=== PATIENT | male | born 1965 | race Caucasian/White ===

== ENCOUNTER 2023-04-28 23:35 | Emergency (ER) | payer OTHER, SELFPAY ==
[2023-04-28 23:39] VITALS: BP 194/122; PULSE 62; RESP 16; TEMP 36.6; O2SAT 98; BMI 39.0
--- NOTE | 2023-04-28 23:58 | CT_ITS ---
The [address] [address] Patient Name: URMILA HEATON MRN: [id number] date: 1965 Sex: M Assigned Patient Location: ED.MAIN Current Patient Location: ED.MAIN Accession/Order Number: [id number] Exam Date: 04/28/2023 00:00 Report Date: 04/29/2023 01:36 At the request of: ITA SOTO Procedure: CT abdomen pelvis wo con EXAM: CT abdomen pelvis wo con HISTORY: Right renal colic. COMPARISON: None. TECHNIQUE: CT abdomen and pelvis without contrast. FINDINGS: Lung bases are clear. There is an adrenal nodule on the right measuring 22 x 16 mm with a central Hounsfield density below 5. No retroperitoneal lymphadenopathy. Mild hydronephrosis is present on the right side. There is a stone just below the UPJ measuring 4 x 5 x 4 mm. Multiple hepatic cysts are noted. Aortic atherosclerosis without aneurysm. No bowel obstruction or inflammation. No pneumatosis or pneumoperitoneum. Appendix is not identified. No pelvic adenopathy or ascites. The bladder is normal. Prostate is not enlarged. CT/CT abdomen pelvis wo con IMPRESSION: 1. Mild hydronephrosis on the right due to a stone just below the UPJ. 2. Small right adrenal adenoma. Electronically authenticated by: PATRICIA NEW Date: 04/29/2023 01:36
--- NOTE | 2023-04-29 | ED_ITS ---
HPI - Male Genitourinary General Chief complaint: Urogenital-Male Stated complaint: FLANK PAIN / KIDNEY STONES Time Seen by Provider: 04/28/23 23:55 History of Present Illness HPI Narrative: right CVA pain. States had MRI last week of his lower lumbar spine and they identified a 5mm stone that was not bothering him. Now presents with recurrent right flank pain on and off since yesterday. Increased pain tonight associated with recurrent vomiting. Now that he is here, the pain is easing up again. No fever. Pain does not radiates into the groin or RLQ Related Data Home Medications Medication Instructions Recorded Confirmed atorvastatin 40 mg tablet 40 mg PO DAILY 04/28/23 04/28/23 fexofenadine 60 mg tablet (Gale 60 mg PO DAILY 04/28/23 04/28/23 Allergy) losartan 100 mg tablet 100 mg PO DAILY 04/28/23 04/28/23 meloxicam 15 mg tablet 15 mg PO DAILY 04/28/23 04/28/23 semaglutide 1 mg/dose (4 mg/3 mL) 1 mg subcut .COMPLEX 04/28/23 04/28/23 subcutaneous pen injector (Ozempic) sildenafil 50 mg tablet 50 mg PO DAILY 04/28/23 04/28/23 Allergies Allergy/AdvReac Type Severity Reaction Status Date / Time No Known Drug Allergies Allergy Verified 04/28/23 23:43 Review of Systems ROS Status of ROS 10 or more systems reviewed and unremarkable except as noted in history and below PFSH PFS Social History Smoking status: Never smoker Exam Constitutional Vital Signs, click to edit/add: Last Vital Signs Temp 97.9 F 04/28/23 23:39 Pulse 62 04/28/23 23:39 Resp 16 04/28/23 23:39 BP 115/81 H 04/29/23 00:43 Pulse Ox 94 L 04/29/23 03:56 O2 Del Method Room Air 04/29/23 03:56 O2 Flow Rate 3 04/29/23 03:09 Common normals: no apparent distress, average body habitus, oriented x3, no limitations and healthy appearing Eye Common normals: EOMs intact bilaterally and conjunctivae normal Respiratory Common normals: normal respiratory effort, no retractions and no use of a ccessory muscles Cardio Common normals: regular rate, regular rhythm, S1 normal heart sound and S2 normal heart sound GI Other: mild R flank tenderness Extremity Common normals: normal to inspection and full ROM Neuro Common normals: oriented x3, CN's II-XII intact bilaterally, moves all extremities, no focal motor deficits and no sensory deficits noted Psych Appearance: grossly normal Course Vital Signs Vital signs: Vital Signs Temperature 97.9 F 04/28/23 23:39 Pulse Rate 62 04/28/23 23:39 Respiratory Rate 16 04/28/23 23:39 Blood Pressure 194/122 H 04/28/23 23:39 Pulse Oximetry 98 04/28/23 23:39 Temperature 97.9 F 04/28/23 23:39 Pulse Rate 62 04/28/23 23:39 Respiratory Rate 16 04/28/23 23:39 Blood Pressure 115/81 H 04/29/23 00:43 Pulse Oximetry 94 L 04/29/23 03:56 Oxygen Delivery Method Room Air 04/29/23 03:56 Oxygen Delivery Flow Rate 3 04/29/23 03:09 MDM - Male Genitourinary MDM Narrative Medical decision making narrative: patient presents with R CVA pain. CT with kidney stone at right UPJ and mild hydronephrosis. UA without evidence of infection. Pain controlled while here in the department. Patient discharged home and advised to follow up with Urology Lab Data Labs: Lab Results 04/28/23 04/28/23 Range/Units 01:25 23:46 WBC 6.5 (4.0-11.0) 10^3/uL RBC 4.78 (4.70-6.10) 10^6/uL Hgb 14.6 (14.0-18.0) g/dL Hct 42.3 (42.0-54.0) % MCV 88.5 (80.0-94.0) fL MCH 30.5 (25.9-34.0) pg MCHC 34.5 (29.9-35.2) g/dL RDW 13.6 (11.0-15.0) % Plt Count 288 (150-450) 10^3/uL MPV 9.8 (9.5-13.5) fL Neut % (Auto) 48.7 (43.0-75.0) % Lymph % (Auto) 33.7 (20.5-60.0) % [place] % (Auto) 9.8 (1.7-12.0) % Eos % (Auto) 6.4 (0.9-7.0) % Baso % (Auto) 1.1 (0.2-2.0) % Neut # (Auto) 3.2 (1.4-6.5) 10^3/uL Lymph # (Auto) 2.2 (1.2-3.8) 10^3/uL [place] # (Auto) 0.6 (0.3-0.8) 10^3/uL Eos # (Auto) 0.4 (0.0-0.7) 10^3/uL Baso # (Auto) 0.1 (0.0-0.1) 10^3/uL Abs Immat Gran (auto) 0.02 (0.00-0.03) 10^3/uL Imm/Tot Granulo (auto) 0.3 (0.0-0.5) % Sodium 141 (136-145) mmol/L Potassium 3.4 L (3.5-5.1) mmol/L Chloride 106 (98-107) mmol/L Carbon Dioxide 25.9 (21.0-32.0) mmol/L Anion Gap 12.5 BUN 14.0 (7.0-18.0) mg/dL Creatinine 1.21 (0.70-1.30) mg/dL Est GFR ( Amer) >60 (>=60) Est GFR (Non-Af Amer) >60 (>=60) BUN/Creatinine Ratio 11.6 Glucose 158 H (74-106) mg/dL Lactate 1.4 (0.4-2.0) mmol/L Calcium 8.6 (8.5-10.1) mg/dL Total Bilirubin 0.5 (0.2-1.0) mg/dL AST 31 (15-37) U/L ALT 28 (16-63) U/L Alkaline Phosphatase 80 (46-116) U/L Total Protein 7.5 (6.4-8.2) g/dL Albumin 3.8 (3.4-5.0) g/dL Globulin 3.7 g/dL Albumin/Globulin Ratio 1.0 Urine Color Yellow (YELLOW) Urine Clarity Clear (CLEAR) Urine pH 5.5 (5.0-9.0) Ur Specific [place] >=1.030 A (1.005-1.025) Urine Protein 30 A (NEG/TRACE) mg/dL Urine Glucose (UA) Negative (NEGATIVE) mg/dL Urine Ketones Trace A (NEGATIVE) mg/dL Urine Occult Blood Large A (NEGATIVE) Urine Nitrite Negative (NEGATIVE) Urine Bilirubin Negative (NEGATIVE) Urine Urobilinogen 1.0 (0.2-1.0) EU/dL Ur Leukocyte Esterase Negative (NEGATIVE) Urine RBC 20-50 A (0-2) #/HPF Urine WBC 0-2 A (NONE SEEN) #/HPF Ur Squamous Epith Cells None seen (NONE/RARE) #/LPF Urine Crystals None seen (None Seen) #/HPF Urine Bacteria Trace A (NONE SEEN) #/HPF Urine Casts None seen (NONE SEEN) #/LPF Urine Mucus Small A (NONE SEEN) Ur Culture Indicated? No Discharge Plan Discharge Chief Complaint: Urogenital-Male Clinical Impression: Kidney stone on right side Prescriptions / Home Meds: No Action atorvastatin 40 mg tablet 40 mg PO DAILY sildenafil 50 mg tablet 50 mg PO DAILY fexofenadine [Gale Allergy] 60 mg tablet 60 mg PO DAILY losartan 100 mg tablet 100 mg PO DAILY meloxicam 15 mg tablet 15 mg PO DAILY Ozempic 1 mg/dose (4 mg/3 mL) pen injector 1 mg SUBCUT .COMPLEX Rx Instructions: 1 mg subcutaneously one time per week; Instructions: Kidney Stones (ED) Additional Instructions: follow up with Urology Stand Alone Forms: Portal Instructions Referrals: CAROLYN JERONIMO [Primary Care Provider] - 1 week
[2023-04-29] MEDS: 0.9 % SODIUM CHLORIDE 1,000 ML 999 ML IV (00:14)
[2023-04-29] MEDS: KETOROLAC TROMETHAMINE 30 MG/ML VIAL IM (00:14)
[2023-04-29] MEDS: ORPHENADRINE 60 MG/ 2 ML VIAL IV (00:15)
[2023-04-29 00:22] LABS: Basophils Absolute Auto 0.1 10^3/uL (0.0-0.1); Basophils Percent Auto 1.1 % (0.2-2.0); Eosinophils Absolute Auto 0.4 10^3/uL (0.0-0.7); Eosinophils Percent Auto 6.4 % (0.9-7.0); Hematocrit 42.3 % (42.0-54.0); Hemoglobin 14.6 g/dL (14.0-18.0); Immature Granulocytes Abs Auto 0.02 10^3/uL (0.00-0.03); Immature Granulocytes Pct Auto 0.3 % (0.0-0.5); Lymphocytes Absolute Auto 2.2 10^3/uL (1.2-3.8); Lymphocytes Percent Auto 33.7 % (20.5-60.0); Mean Corpuscular HGB Conc 34.5 g/dL (29.9-35.2); Mean Corpuscular Hemoglobin 30.5 pg (25.9-34.0); Mean Corpuscular Volume 88.5 fL (80.0-94.0); Mean Platelet Volume 9.8 fL (9.5-13.5); Monocytes Absolute Auto 0.6 10^3/uL (0.3-0.8); Monocytes Percent Auto 9.8 % (1.7-12.0); Neutrophils Absolute Auto 3.2 10^3/uL (1.4-6.5); Neutrophils Percent Auto 48.7 % (43.0-75.0); Platelet Count 288 10^3/uL (150-450); Red Blood Count 4.78 10^6/uL (4.70-6.10); Red Cell Distribution Width 13.6 % (11.0-15.0); White Blood Count 6.5 10^3/uL (4.0-11.0)
[2023-04-29 00:41] LABS: Lactate/Lactic Acid 1.4 mmol/L (0.4-2.0)
[2023-04-29 00:43] VITALS: BP 115/81
[2023-04-29 00:48] LABS: Alanine Aminotransferase 28 U/L (16-63); Albumin Level 3.8 g/dL (3.4-5.0); Alkaline Phosphatase 80 U/L (46-116); Anion Gap 12.5; Aspartate Amino Transferase 31 U/L (15-37); BUN Creatinine Ratio 11.6; Bilirubin Total 0.5 mg/dL (0.2-1.0); Calcium 8.6 mg/dL (8.5-10.1); Carbon Dioxide 25.9 mmol/L (21.0-32.0); Chloride 106 mmol/L (98-107); Estimated GFR (African America >60 (>=60); Estimated GFR (Non-African Ame >60 (>=60); Globulin 3.7 g/dL; Glucose 158 mg/dL (74-106); Potassium 3.4 mmol/L (3.5-5.1); Sodium 141 mmol/L (136-145); Total Protein 7.5 g/dL (6.4-8.2)
[2023-04-29 01:33] LABS: Bilirubin Urine NEGATIVE (NEGATIVE); Blood Urine LARGE (NEGATIVE); Clarity Urine CLEAR (CLEAR); Color Urine YELLOW (YELLOW); Glucose Urine UA NEGATIVE (NEGATIVE); Ketones Urine TRACE mg/dL (NEGATIVE); Leukocyte Esterase Urine NEGATIVE (NEGATIVE); Nitrite Urine NEGATIVE (NEGATIVE); Protein Urine 30 mg/dL (NEG/TRACE); Specific Gravity Urine >=1.030 (1.005-1.025); pH Urine 5.5 (5.0-9.0)
[2023-04-29 01:36] LABS: Urine Microscopic Indicated YES
[2023-04-29 01:44] LABS: Bacteria Urine TRACE #/HPF (NONE SEEN); Crystals Seen? None Seen #/HPF (None Seen); Mucus Urine SMALL (NONE SEEN); RBC Urine 20-50 #/HPF (0-2); Squamous Epithelial Cell Urine NONE SEEN #/LPF (NONE/RARE); WBC Urine 0-2 #/HPF (NONE SEEN)
[2023-04-29 01:45] LABS: Cast Seen? NONE SEEN #/LPF (NONE SEEN); Urine Culture Indicated NO
[2023-04-29] MEDS: MORPHINE SULFATE 4 MG/ML VIAL IV (02:02)
[2023-04-29] MEDS: 0.9 % SODIUM CHLORIDE 1,000 ML 1000 ML IV (02:18)
[2023-04-29] MEDS: ONDANSETRON PF 4 MG/2 ML VIAL IV (02:47)
[2023-04-29] MEDS: HYDROMORPHONE HCL 0.5 MG/0.5 ML SYRINGE IV (02:47)
[2023-04-29 03:08] VITALS: O2SAT 87
[2023-04-29 03:09] VITALS: O2SAT 94
[2023-04-29 03:56] VITALS: O2SAT 94
[2023-04-29] MEDS: KETOROLAC TROMETHAMINE 30 MG/ML VIAL IVP (03:56)
[2023-04-29] MEDS: HYDROCODONE/ACETAMINOPHEN 5-325 MG TABLET 4 TAB PO (04:48)
[2023-04-29 04:56] VITALS: PULSE 81; RESP 14; O2SAT 96
== END 2023-04-29 04:57 | disposition home or self-care (01) ==
PROVIDERS: Emergency Provider Internal Medicine; PCP Family Medicine
DX: N13.2 Hydronephrosis with renal and ureteral calculous obstruction (principal); Z79.899 Other long term (current) drug therapy
CPT/HCPCS: 36415; 74176; 80053; 81003; 81015; 83605; 85025; 96361; 96372; 96374; 96375; 99284; J1170

== ENCOUNTER 2023-07-19 21:09 | Emergency (ER) | payer BC, SELFPAY ==
[2023-07-19] VITALS (20 sets, daily range): BP systolic 132–176; BP diastolic 82–120; PULSE 79; RESP 18; TEMP 36.6; O2SAT 90–100; BMI 38.9
--- NOTE | 2023-07-19 21:26 | ED.MALEGU1 ---
HPI - Male Genitourinary General Chief complaint: Abdominal Pain Stated complaint: POSS KIDNEY STONE Time Seen by Provider: 07/19/23 21:16 History of Present Illness HPI Narrative: 57-year-old male presents to the emergency department for right flank pain and frequency of urination. He was diagnosed with a kidney stone in April of this year and has not seen a urologist. No fever or gross hematuria or any sort of injury. The symptoms developed skin about a week ago and it's been intermittent. No vomiting. The pain is mild to moderate. Related Data Home Medications Medication Instructions Recorded Confirmed atorvastatin 40 mg tablet 40 mg PO DAILY 04/28/23 04/28/23 fexofenadine 60 mg tablet (Gale 60 mg PO DAILY 04/28/23 04/28/23 Allergy) losartan 100 mg tablet 100 mg PO DAILY 04/28/23 04/28/23 meloxicam 15 mg tablet 15 mg PO DAILY 04/28/23 04/28/23 semaglutide 1 mg/dose (4 mg/3 mL) 1 mg subcut .COMPLEX 04/28/23 04/28/23 subcutaneous pen injector (Ozempic) sildenafil 50 mg tablet 50 mg PO DAILY 04/28/23 04/28/23 Previous Rx's Medication Instructions Recorded hydrocodone 5 mg-acetaminophen 325 1 tab PO Q6H PRN pain 5 days #20 07/19/23 mg tablet tabs Allergies Allergy/AdvReac Type Severity Reaction Status Date / Time No Known Drug Allergies Allergy Verified 07/19/23 21:25 Review of Systems ROS Narrative A ten point review of systems is negative except as noted above. PFSH PFSH Social History Smoking status: Never smoker Exam Narrative Exam Narrative: Nurses note and vital signs reviewed and patient is not hypoxic. General: The patient appears well and in no apparent distress. Patient is resting comfortably on cart. Skin: Warm, dry, no pallor noted. There is no rash noted. Head: Normocephalic, atraumatic Eye: Normal conjunctiva, no drainage Ears, Nose, Mouth, and Throat: oral mucosa is moist. Nares patent. Cardiovascular: Regular Rate and Rhythm Respiratory: Patient is in no distress, no accessory muscle use, lungs are clear to auscultation, no wheezing, rales or rhonchi Back: non-tender, no CVA tenderness bilaterally to percussion. no bruise or rash GI: soft and nontender Musculoskeletal: The patient has no evidence of calf tenderness, no pitting edema, symmetrical pulses noted bilaterally Neurological: A&O, normal speech Psychiatric: Cooperative Constitutional Vital Signs, click to edit/add: Last Vital Signs Temp 98 F 07/19/23 21:18 Pulse 79 07/19/23 21:18 Resp 18 07/19/23 21:18 BP 132/83 07/19/23 21:34 Pulse Ox 100 07/19/23 21:34 O2 Del Method Room Air 07/19/23 21:18 Course Vital Signs Vital signs: Vital Signs Temperature 98 F 07/19/23 21:18 Pulse Rate 79 07/19/23 21:18 Respiratory Rate 18 07/19/23 21:18 Pulse Oximetry 98 07/19/23 21:18 Oxygen Delivery Method Room Air 07/19/23 21:18 Temperature 98 F 07/19/23 21:18 Pulse Rate 79 07/19/23 21:18 Respiratory Rate 18 07/19/23 21:18 Blood Pressure 132/83 07/19/23 21:34 Pulse Oximetry 100 07/19/23 21:34 Oxygen Delivery Method Room Air 07/19/23 21:18 MDM - Male Genitourinary MDM Narrative Medical decision making narrative: CT per radiologist shows stone in the bladder. The patient appears to have passed the stone that he was originally diagnosed with over the summer. He is given a urine strainer and specimen cup and will follow-up with his urologist. He is provided a prescription for [place]. Treatment diagnosis and follow-up were discussed with the patient. Differential Diagnosis Differential diagnosis: Likely urinary tract infection and other (kidney stone, hydronephrosis) Medical Records Attestation: I reviewed the patient's medical records. Lab Data Attestation: I reviewed the patient's lab results. Labs: Lab Results 07/19/23 Range/Units 21:30 WBC 9.7 (4.0-11.0) 10^3/uL RBC 4.48 L (4.70-6.10) 10^6/uL Hgb 13.9 L (14.0-18.0) g/dL Hct 41.8 L (42.0-54.0) % MCV 93.3 (80.0-94.0) fL MCH 31.0 (25.9-34.0) pg MCHC 33.3 (29.9-35.2) g/dL RDW 13.9 (11.0-15.0) % Plt Count 251 (150-450) 10^3/uL MPV 9.5 (9.5-13.5) fL Neut % (Auto) 60.9 (43.0-75.0) % Lymph % (Auto) 24.3 (20.5-60.0) % [place] % (Auto) 8.2 (1.7-12.0) % Eos % (Auto) 5.3 (0.9-7.0) % Baso % (Auto) 1.0 (0.2-2.0) % Neut # (Auto) 5.9 (1.4-6.5) 10^3/uL Lymph # (Auto) 2.4 (1.2-3.8) 10^3/uL [place] # (Auto) 0.8 (0.3-0.8) 10^3/uL Eos # (Auto) 0.5 (0.0-0.7) 10^3/uL Baso # (Auto) 0.1 (0.0-0.1) 10^3/uL Abs Immat Gran (auto) 0.03 (0.00-0.03) 10^3/uL Imm/Tot Granulo (auto) 0.3 (0.0-0.5) % Sodium 137 (136-145) mmol/L Potassium 3.7 (3.5-5.1) mmol/L Chloride 104 (98-107) mmol/L Carbon Dioxide 26.4 (21.0-32.0) mmol/L Anion Gap 10.3 BUN 16.0 (7.0-18.0) mg/dL Creatinine 1.09 (0.70-1.30) mg/dL Est GFR ( Amer) >60 (>=60) Est GFR (Non-Af Amer) >60 (>=60) BUN/Creatinine Ratio 14.7 Glucose 95 (74-106) mg/dL Calcium 8.7 (8.5-10.1) mg/dL Urine Color Yellow (YELLOW) Urine Clarity Clear (CLEAR) Urine pH 6.0 (5.0-9.0) Ur Specific [place] 1.025 (1.005-1.025) Urine Protein Negative (NEG/TRACE) mg/dL Urine Glucose (UA) Negative (NEGATIVE) mg/dL Urine Ketones Negative (NEGATIVE) mg/dL Urine Occult Blood Large A (NEGATIVE) Urine Nitrite Negative (NEGATIVE) Urine Bilirubin Negative (NEGATIVE) Urine Urobilinogen 0.2 (0.2-1.0) EU/dL Ur Leukocyte Esterase Negative (NEGATIVE) Urine RBC 10-20 A (0-2) #/HPF Urine WBC 0-2 A (NONE SEEN) #/HPF Ur Squamous Epith Cells Rare (NONE/RARE) #/LPF Urine Crystals None seen (None Seen) #/HPF Urine Bacteria Trace A (NONE SEEN) #/HPF Urine Casts None seen (NONE SEEN) #/LPF Urine Mucus None seen (NONE SEEN) Ur Culture Indicated? No Imaging Data CT scan - abdomen: Radiologist's impression: Procedure: CT abdomen pelvis wo con EXAM: CT SCAN OF THE ABDOMEN AND PELVIS WITHOUT IV CONTRAST DATE OF EXAM: 07/19/2023 9:40 PM EDT HISTORY: right flank pain, rule out stone in a 57-year-old male prior history of a renal stone with pain that radiates into his bladder COMPARISON: 04/29/2023 TECHNIQUE: CT examination of the abdomen and pelvis with sagittal and coronal reformations was performed without intravenous contrast. CT dose lowering techniques were used, to include: automated exposure control, adjustment for patient size, and/or use of iterative reconstruction. CONTRAST: None. FINDINGS: Note: This exam is limited because some types of pathology may not be adequately demonstrated due to lack of contrast enhancement. Director [facility]/Lines & Tubes: Nonobstructive bowel gas pattern. Lower Chest: Interstitial opacity in the medial right lung base Free Air: None. Liver: The liver is enlarged with fluid attenuating regions demonstrated. Largest is measuring 28 x 28 mm within the medial left lobe of the liver on axial image 24 of series 3. Further evaluation limited due to lack of IV contrast. Gallbladder: Decompressed Common Bile Duct: Normal Pancreas: Normal Spleen: Normal Adrenal Glands: Right: Fluid attenuating and fat attenuating nodule measures 21.5 mm Left: Normal Kidneys: Right Kidney: Moderate hydronephrosis with hydroureter secondary to a 4 mm stone in the base of the bladder Left Kidney: Normal. Left Ureter: Normal. GI Tract: Distal Esophagus: Normal. Stomach: Decompressed Small Bowel: Normal Appendix: No secondary signs for acute appendicitis Large Bowel: Scattered diverticula Mesentery/Peritoneum: Normal Vasculature: Normal Lymph Nodes: Normal Abdominal Wall: Normal Bladder: Decompressed Reproductive: Normal prostate Musculoskeletal: Normal Free Fluid: None. IMPRESSION: 1. Moderate hydronephrosis with hydroureter secondary to a 4 mm stone in the base of the bladder 2. Hepatomegaly with stable fluid attenuating regions demonstrated. Largest is measuring 28 x 28 mm within the medial left lobe of the liver on axial image 24 of series 3. Further evaluation limited due to lack of IV contrast. Please correlate with patient's LFTs. If clinically indicated MRI using multiphasic liver protocol would help better delineate. 3. Stable Right adrenal gland adenoma. 4. Decompressed gallbladder. Please correlate with patient's nothing by mouth status. 5. Otherwise unremarkable noncontrast CT of the abdomen and pelvis for acute pathology. Electronically authenticated by: PIERO JAMA Date: 07/19/2023 23:14 Discharge Plan Discharge Chief Complaint: Abdominal Pain Clinical Impression: Hydronephrosis, Calculus of kidney Patient Disposition: Home, Self-Care Time of Disposition Decision: 23:30 Condition: Good Mode of Transportation: Private Vehicle Prescriptions / Home Meds: New hydrocodone-acetaminophen 5-325 mg tablet 1 tab PO Q6H PRN (Reason: pain) 5 Days Qty: 20 0RF No Action atorvastatin 40 mg tablet 40 mg PO DAILY sildenafil 50 mg tablet 50 mg PO DAILY fexofenadine [Gale Allergy] 60 mg tablet 60 mg PO DAILY losartan 100 mg tablet 100 mg PO DAILY meloxicam 15 mg tablet 15 mg PO DAILY Ozempic 1 mg/dose (4 mg/3 mL) pen injector 1 mg SUBCUT .COMPLEX Rx Instructions: 1 mg subcutaneously one time per week; Stand Alone Forms: Portal Instructions Referrals: CAROLYN JERONIMO [Primary Care Provider] - 1 week
[2023-07-19 21:51] LABS: Basophils Absolute Auto 0.1 10^3/uL (0.0-0.1); Bilirubin Urine NEGATIVE (NEGATIVE); Blood Urine LARGE (NEGATIVE); Clarity Urine CLEAR (CLEAR); Color Urine YELLOW (YELLOW); Eosinophils Absolute Auto 0.5 10^3/uL (0.0-0.7); Eosinophils Percent Auto 5.3 % (0.9-7.0); Glucose Urine UA NEGATIVE (NEGATIVE); Hematocrit 41.8 % (42.0-54.0); Hemoglobin 13.9 g/dL (14.0-18.0); Immature Granulocytes Abs Auto 0.03 10^3/uL (0.00-0.03); Immature Granulocytes Pct Auto 0.3 % (0.0-0.5); Ketones Urine NEGATIVE (NEGATIVE); Leukocyte Esterase Urine NEGATIVE (NEGATIVE); Lymphocytes Absolute Auto 2.4 10^3/uL (1.2-3.8); Lymphocytes Percent Auto 24.3 % (20.5-60.0); Mean Corpuscular HGB Conc 33.3 g/dL (29.9-35.2); Mean Corpuscular Volume 93.3 fL (80.0-94.0); Mean Platelet Volume 9.5 fL (9.5-13.5); Monocytes Absolute Auto 0.8 10^3/uL (0.3-0.8); Monocytes Percent Auto 8.2 % (1.7-12.0); Neutrophils Absolute Auto 5.9 10^3/uL (1.4-6.5); Neutrophils Percent Auto 60.9 % (43.0-75.0); Nitrite Urine NEGATIVE (NEGATIVE); Platelet Count 251 10^3/uL (150-450); Protein Urine NEGATIVE (NEG/TRACE); Red Blood Count 4.48 10^6/uL (4.70-6.10); Red Cell Distribution Width 13.9 % (11.0-15.0); Specific Gravity Urine 1.025 (1.005-1.025); Urobilinogen Urine 0.2 EU/dL (0.2-1.0); White Blood Count 9.7 10^3/uL (4.0-11.0)
[2023-07-19 22:03] LABS: Anion Gap 10.3; BUN Creatinine Ratio 14.7; Calcium 8.7 mg/dL (8.5-10.1); Carbon Dioxide 26.4 mmol/L (21.0-32.0); Chloride 104 mmol/L (98-107); Estimated GFR (African America >60 (>=60); Estimated GFR (Non-African Ame >60 (>=60); Glucose 95 mg/dL (74-106); Potassium 3.7 mmol/L (3.5-5.1); Sodium 137 mmol/L (136-145)
[2023-07-19 22:06] LABS: Bacteria Urine TRACE #/HPF (NONE SEEN); Cast Seen? NONE SEEN #/LPF (NONE SEEN); Crystals Seen? None Seen #/HPF (None Seen); Mucus Urine NONE SEEN (NONE SEEN); Squamous Epithelial Cell Urine RARE #/LPF (NONE/RARE); WBC Urine 0-2 #/HPF (NONE SEEN)
[2023-07-19 22:07] LABS: Urine Culture Indicated NO
== END 2023-07-19 23:46 | disposition home or self-care (01) ==
PROVIDERS: Emergency Provider Emergency Medicine; PCP Family Medicine
DX: N13.2 Hydronephrosis with renal and ureteral calculous obstruction (principal); Z87.442 Personal history of urinary calculi; Z79.899 Other long term (current) drug therapy
CPT/HCPCS: 36415; 74176; 80048; 81001; 85025; 99284

== ENCOUNTER 2023-08-21 10:37 | Outpatient (OUT) | payer BC, SELFPAY ==
--- NOTE | 2023-08-21 10:40 | US_ITS ---
The [address] [address] Patient Name: URMILA HEATON MRN: [id number] date: 1965 Sex: M Assigned Patient Location: US Current Patient Location: US Accession/Order Number: [id number] Exam Date: 08/21/2023 10:45 Report Date: 08/21/2023 13:32 At the request of: ASIF CHOUDHARY Procedure: US renal bladder US renal bladder, 08/21/2023 10:45 AM EST INDICATION: Kidney Stone N20.0, Ureteral Stone N20.1 COMPARISON: Prior CT of the abdomen dated 07/19/2023 FINDINGS: The kidneys measure 11.1 x 5.3 x 6.7 cm on the right and 12.6 x 5.4 x 8 cm on the left side. No hydronephrosis is noted. Normal vascularity of kidneys. An echogenic lesion in the superior pole of the right kidney is noted measuring 3 x 1.9 x 3.2 mm most likely consistent with a nonobstructing nephrolithiasis. The visualized portion of the urinary bladder is unremarkable. Nonspecific ureteral jet is noted. The urinary bladder wall measures 5 mm. The post void residual measures 36.6 mL. US/US renal bladder IMPRESSION: Nonobstructive nephrolithiasis in the superior pole of the left kidney. No hydronephrosis. Electronically authenticated by: ABRAN RODRIGUEZ Date: 08/21/2023 13:32
--- NOTE | 2023-08-21 10:41 | XR_ITS ---
[address] [address] Patient Name: URMILA HEATON MRN: [id number] date: 1965 Sex: M Assigned Patient Location: US Current Patient Location: US Accession/Order Number: [id number] Exam Date: 08/21/2023 11:20 Report Date: 08/21/2023 12:24 At the request of: ASIF CHOUDHARY Procedure: XR abdomen 1V EXAM: XR abdomen 1V HISTORY: Ureteral Stone N20.1, Kidney Stone N20.0 COMPARISON: None. TECHNIQUE: AP view of the abdomen. FINDINGS: Nonobstructive bowel gas pattern is noted. There is no suspicious calcification. The osseous structures are intact. XR/XR abdomen 1V IMPRESSION: Nonobstructive bowel gas pattern. Constipation. Electronically authenticated by: DEE SHI Date: 08/21/2023 12:24
== END 2023-08-21 10:38 | disposition home or self-care (01) ==
LOC: US 10:37
PROVIDERS: PCP Family Medicine; Visit Provider Urology
DX: N20.1 Calculus of ureter (principal); N20.0 Calculus of kidney
CPT/HCPCS: 74018; 76770

== ENCOUNTER 2024-11-24 10:07 | Outpatient (OUT) | payer BC, SELFPAY ==
--- OUTSIDE RECORDS SUMMARY | 2024-11-24 10:28 | XMS_ITS | CCD ---
Author Organization [facility] Care Team Providers Care Pulmonary Specialist Name Role Phone ZEESHAN BAILEY Admitting Unavailable ZEESHAN BAILEY Attending Unavailable MARGARITA JERONIMO Primary Care Unavailable ZEESHAN BAILEY Consulting Unavailable MARGARITA JERONIMO Admitting Unavailable MARGARITA JERONIMO Attending Unavailable MARGARITA JERONIMO Consulting Unavailable WESTLEY BERGER Consulting Unavailable TRISTON, J A Admitting Unavailable TRISTON, J A Attending Unavailable MARGARITA JERONIMO Primary Care Unavailable Lani GOLDSTEIN Consulting Unavailable WESTLEY BERGER Consulting Unavailable TRISTON, J A Admitting Unavailable TRISTON, J A Attending Unavailable MARGARITA JERONIMO Referring Unavailable TRISTON, J A Consulting Unavailable TRISTON, J A Admitting Unavailable TRISTON, J A Attending Unavailable MARGARITA JERONIMO Primary Care Unavailable TRISTON, J A Consulting Unavailable KENNY FLORES Consulting Unavailable Danitza Ibarra Unavailable SHIVAM Jones Attending Provider Mary Jane Jones Admitting Unavailable Mary Jane Joens Attending Unavailable NON STAFF Primary Care Unavailable Mary Jane Jones Unavailable Maddy Maria Unavailable AMY DREW Primary Care Physician Isaura Vasquez. Attending Unavailable AMY DREW Referring Unavailable AMY DREW Referring Unavailable MARGARITA JERONIMO Primary Care Unavailable Margarita Jeronimo MD Primary Care Provider Margarita Jeronimo MD Unavailable MARGARITA JERONIMO Attending Unavailable AMY DREW Attending Unavailable MARGARITA JERONIMO Attending Unavailable LESLY ARMSTRONG Attending Unavailable LESLY ARMSTRONG Referring Unavailable Medications Current Medications Medication Drug Class(es) Dates Sig (Normalized) Sig (Original) acetaminophen 250 mg / caffeine 50 mg / magnesium salicylate 290 mg oral tablet (1 source) Central Nervous System Stimulant, Methylxanthine take 2 tablets by mouth every six hours Aspirin (3 sources) Platelet Aggregation Inhibitor, Nonsteroidal Anti-inflammatory Drug Aspirin Active atorvastatin 40 mg oral tablet (12 sources) HMG-CoA Reductase Inhibitor Start: 11-23-2024 take 1 tablet by mouth once daily atorvastatin (Lipitor) 40 MG tablet Indications: Pure hypercholesterolemia (CMS/HCC) Take 1 tablet (40 mg) by mouth Daily 100 tablet 3 11/23/2024 Active Start: 11-23-2024 take 1 tablet by kelly th once daily atorvastatin (Lipitor) 40 MG tablet Indications: Pure hypercholesterolemia (CMS/HCC) Take 1 tablet (40 mg) by mouth Daily 100 tablet 3 11/23/2024 Active Start: 10-18-2024 End: 11-23-2024 take 1 tablet by mouth once daily atorvastatin (Lipitor) 40 MG tablet Indications: Pure hypercholesterolemia (CMS/HCC) Take 1 tablet (40 mg) by mouth Daily 90 tablet 1 10/18/2024 11/23/2024 Discontinued (Reorder) Start: 04-20-2024 take 1 tablet by kelly th once daily atorvastatin (Lipitor) 40 MG tablet Indications: Pure hypercholesterolemia (CMS/HCC) TAKE 1 TABLET BY MOUTH EVERY DAY 90 tablet 1 04/20/2024 Active Start: 08-13-2023 take 1 tablet by kelly th every twenty-four hours Atorvastatin Meño cium Active azithromycin 250 mg oral tablet (2 sources) Macrolide Antimicrobial Start: 11-23-2024 End: 11-28-2024 take 2 tablets by mouth once daily, then take 1 tablet by mouth once daily azithromycin (Zithromax) 250 MG tablet Indications: Acute non-recurrent pansinusitis Take 2 tablets (500 mg) by mouth Daily for 1 day, THEN 1 tablet (250 mg) Daily for 4 days. 6 tablet 11/23/2024 11/28/2024 Active Crutch - (1 source) Start: 09-25-2022 Crutch - as directed Sep, Active Crutches Underarm Crutches (1 source) Start: 09-25-2022 Crutches Underarm Crutches 14 Dec, 2022 Active cyclobenzaprine hydrochloride 10 mg oral tablet (1 source) Muscle Relaxant Start: 03-28-2023 fexofenadine (10 sources) Histamine-1 Receptor Antagonist Start: 08-13-2023 fexofenadine 0 Refill(s), Refills(s) 0 Start Date: 08/13/23 Status: Ordered take 1 tablet by mouth in the mo rning Fexofenadine HCl (GALE ALLERGY PO) Take 1 tablet by mouth in the morning. Active Gale Active gabapentin 100 mg oral capsule (6 sources) Anti-epileptic Agent Start: 04-30-2024 End: 04-25-2025 take 1 capsule by mouth every eight hours gabapentin (Neurontin) 100 MG capsule Indications: Hx of diabetic neuropathy , Neuropathic pain, leg, bilateral Take 1 capsule (100 mg) by mouth every 8 (eight) hours 90 capsule 11 04/30/2024 04/25/2025 Active hyoscyamine sulfate 0.125 mg sublingual tablet (7 sources) Start: 02-05-2024 End: 11-08-2024 hyoscyamine (Levsin/SL) 0.125 MG SL tablet Indications: Pain due to calculus of kidney Place 1 tablet (125 mcg) under the tongue every 6 (six) hours if needed for bladder spasms (pain, renal stones) for up to 10 days 40 tablet 02/05/2024 11/08/2024 Discontinued (Other) Start: 08-20-2023 hyoscyamine 0. 125 mg oral Tab mg tab(s), Oral Start Date: 08/20/23 Status: Ordered Start: 05-01-2023 End: 11-08-2024 hyoscyamine (Levsin/SL) 0.12 5 MG SL tablet Indications: Bladder spasm Place 1 tablet (125 mcg) under the tongue every 4 (four) hours if needed for bladder spasms or cramping for up to 14 days. 84 tablet 05/01/2023 11/08/2024 Discontinued (Other) ibuprofen 200 mg oral tablet (1 source) Nonsteroidal Anti-inflammatory Drug losartan potassium 100 mg oral tablet (9 sources) Angiotensin 2 Receptor Mathew Start: 06-17-20 take 1 tablet by mouth once daily losartan (Cozaar) 100 MG tablet Indications: Essential hypertension (CMS/HCC) Take 1 tablet (100 mg) by mouth Daily 200 tablet 3 06/17/2024 Active Start: 08-13-2023 take 1 tablet by kelly th every twenty-four hours Losartan Potassi um Active LOW-DOSE ASPIRIN PO (5 sources) LOW-DOSE ASPIRIN PO Take by mouth Active meloxicam 15 mg oral tablet (10 sources) Nonsteroidal Anti-inflammatory Drug Start: 08-09-2024 take 1 tablet by mouth once daily meloxicam (Mobic) 15 MG tablet Indications: Other chronic pain Take 1 tablet (15 mg) by mouth Daily 90 tablet 3 08/09/2024 Active Start: 08-13-2023 metFORMIN (1 source) Biguanide metFORMIN HCl Ac tive methylPREDNISolone (2 sources) Corticosteroid Start: 11-23-2024 End: 11-30-2024 methylPREDNISolone (Medrol Dospak) 4 MG tablets Indications: Acute non-recurrent pansinusitis Follow schedule on package instructions 21 tablet 11/23/2024 11/30/2024 Active Ozempic (3 sources) Ozempic Active Ozempic (1 mg dose) (1 source) Start: 08-13-2023 Ozempic (1 mg dose) 0 Refill(s), Refills(s) 0 Start Date: 08/13/23 Status: Ordered predniSONE 20 mg oral tablet (1 source) Start: 03-28-2023 Semaglutide, 2 MG/DOSE, 8 MG/3ML solution pen-injector (6 sources) Start: 11-04-2024 inject 2 mg by subcutaneous injection every week Semaglutide, 2 MG/DOSE, 8 MG/3ML solution pen-injector Indications: Diabetic autonomic neuropathy associated with type 2 diabetes mellitus (CMS/HCC) Inject 2 mg under the skin 1 (one) time per week 3 mL 3 11/04/2024 Active Start: 03-23-2024 inject 2 mg by subcu taneous injection every week Semaglutide, 2 MG/DOSE, 8 MG/3ML solution pen-injector Indications: Diabetic autonomic neuropathy associated with type 2 diabetes mellitus (CMS/HCC) Inject 2 mg under the skin 1 (one) time per week 3 mL 3 03/23/2024 Active tamsulosin hydrochloride 0.4 mg oral capsule (1 source) alpha-Adrenergic Mathew Start: 08-20-2023 take 1 capsule by mouth once daily tamsulosin 0.4 mg Cap 0.4 mg = 1 cap(s), Oral, Daily, # 30 cap(s), Refills(s) 1, [facility]acy: [facility] #[id number], 185, cm, 08/20/23 10:26:00 EST, Height/Length Dosing, 136.4, kg, 08/20/23 10:26:00 EST, Weight Dosing Start Date: 08/20/23 Status: Ordered Completed/Discontinued Medications Medication Drug Class(es) Dates Sig (Normalized) Sig (Original) sildenafil 50 mg oral tablet (1 source) Phosphodiesterase 5 Inhibitor Start: 08-13-2023 sildenafil 50 mg Tab 8 EA, 0 Refill(s), take 1 tablet by mouth once daily if needed for ERECTILE DYSFUNCTION, Refills(s) 0 Start Date: 08/13/23 Status: Ordered Problems Active Problems Problem Classification Problem Date Documented Date Episodic/Chronic Abdominal pain (1 source) Unspecified abdominal pain; Translations: [Unspecified abdominal pain] Onset: 02-11-2024 Episodic Anxiety disorders (8 sources) Anxiety disorder, unspecified; Translations: [Anxiety] Onset: 04-30-2019 08-13-2023 Chronic Diabetes mellitus with complications (12 sources) Diabetic mononeuropathy; Translations: [Type 2 diabetes mellitus with diabetic mononeuropathy] Onset: 03-18-2023 03-18-2023 Chronic Diabetes mellitus without complication (10 sources) Type 2 diabetes mellitus without complications; Translations: [Type 2 diabetes mellitus] Onset: 04-30-2019 08-13-2023 Chronic Disorders of lipid metabolism (10 sources) Pure hypercholesterolemia; Translations: [Pure hypercholesterolemia, unspecified] Onset: 03-18-2023 03-18-2023 Chronic Essential hypertension (10 sources) Essential (primary) hypertension; Translations: [Essential hypertension] Onset: 04-30-2019 08-13-2023 Chronic Genitourinary symptoms and ill-defined conditions (7 sources) Nocturia; Translations: [Nocturia] Onset: 11-08-2024 11-08-2024 Episodic Mood disorders (7 sources) Major depressive disorder; Translations: [Depressive disorder] Onset: 04-27-2008 08-13-2023 Chronic Mood disorders (1 source) Major depressive disorder, single episode, unspecified; Translations: [CRUZ DEPRESS D/O SINGLE EPIS UNS] Onset: 04-30-2019 Osteoarthritis (14 sources) Primary osteoarthritis, right shoulder; Translations: [Arthritis] Onset: 04-30-2019 08-20-2023 Chronic Other aftercare (1 source) 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; Translations: [CLARITY DEVELOPER CURRENT USE OF ASPIRIN] Onset: 04-30-2019 Episodic Other aftercare (1 source) [facility] (current) use of oral hypoglycemic drugs; Translations: [CLARITY DEVELOPER USE ORAL HYPOGLYCEMIC DX] Onset: 04-30-2019 Other connective tissue disease (1 source) Incomplete rotator cuff tear or rupture of right shoulder, not specified as traumatic; Translations: [INCMPL ROT CUFF TEAR/RUPT RT SHLDR] Onset: 04-30-2019 Episodic Other connective tissue disease (1 source) Unspecified rotator cuff tear or rupture of right shoulder, not specified as traumatic; Translations: [UNS ROT CUFF TEAR/RUPT RT SHOULDER] Onset: 04-08-2019 Episodic Other diseases of kidney and ureters (1 source) Urinary tract obstruction; Translations: [Hydronephrosis with renal and ureteral calculous obstruction] Onset: 08-20-2023 Episodic Other male genital disorders (6 sources) Other male erectile dysfunction; Translations: [Impotence of organic origin] Onset: 03-24-2023 03-24-2023 Chronic Other nervous system disorders (7 sources) Chronic pain; Translations: [Other chronic pain] Onset: 03-18-2023 08-09-2024 Chronic Other non-traumatic joint disorders (6 sources) Arthropathy; Translations: [Arthropathy, unspecified] Onset: 03-18-2023 03-18-2023 Chronic Other non-traumatic joint disorders (6 sources) Derangement of right shoulder joint; Translations: [Other specific joint derangements of right shoulder, not elsewhere classified] Onset: 03-18-2023 03-18-2023 Chronic Other non-traumatic joint disorders (5 sources) Pain in right shoulder; Translations: [PAIN IN RIGHT SHOULDER] Onset: 01-17-2019 Episodic Other non-traumatic joint disorders (1 source) Pain in right knee Episodic Other non-traumatic joint disorders (1 source) Effusion, right knee Episodic Other nutritional; endocrine; and metabolic disorders (6 sources) Lipoprotein deficiency disorder; Translations: [Lipoprotein deficiency] Onset: 03-18-2023 03-18-2023 Chronic Other nutritional; endocrine; and metabolic disorders (8 sources) Obesity caused by energy imbalance; Translations: [Morbid (severe) obesity due to excess calories] Onset: 03-18-2023 03-23-2024 Chronic Other nutritional; endocrine; and metabolic disorders (7 sources) Body mass index 30+ - obesity; Translations: [Body mass index (BMI) 37.0-37.9, adult] Onset: 11-08-2024 11-08-2024 Chronic Other screening for suspected conditions (not mental disorders or infectious disease) (8 sources) Encounter for screening for malignant neoplasm of prostate; Translations: [Screening for malignant neoplasm done] Onset: 08-20-2023 Episodic Other upper respiratory disease (6 sources) Allergic rhinitis; Translations: [Other allergic rhinitis] Onset: 04-21-2008 03-18-2023 Chronic Other upper respiratory infections (2 sources) Acute pansinusitis; Translations: [Acute pansinusitis, unspecified] 11-23-2024 Episodic Residual codes; unclassified (6 sources) Obstructive sleep apnea syndrome; Translations: [Obstructive sleep apnea (adult) (pediatric)] Onset: 04-21-2008 03-18-2023 Chronic Spondylosis; intervertebral disc disorders; other back problems (6 sources) Cervical spondylosis without myelopathy; Translations: [Spondylosis without myelopathy or radiculopathy, cervical region] Onset: 04-21-2008 03-18-2023 Chronic Unclassified (1 source) Pain in right knee; Translations: [Pain in right knee] Onset: 09-25-2022 Unclassified (1 source) Obstructive hydronephrosis 08-20-2023 Unclassified (1 source) Patient encounter status 08-20-2023 Past or Other Problems Problem Classification Problem Date Documented Da te Episodic/Chronic Calculus of urinary tract (17 sources) Kidney stone; Translations: [Calculus of kidney] Onset: 08-20-2023 Episodic Intestinal infection (1 source) Viral intestinal infection, unspecified Onset: 05-09-2022 Resolved: 05-09-2022 Episodic Other connective tissue disease (4 sources) Impingement syndrome of right shoulder; Translations: [IMPINGEMENT SYNDROME RIGHT SHOULDER] Onset: 01-08-2019 Episodic Other connective tissue disease (6 sources) Other symptoms and signs involving the musculoskeletal system; Translations: [Other musculoskeletal symptoms referable to limbs] Onset: 04-25-2023 04-25-2023 Episodic Other diseases of kidney and ureters (6 sources) Hydronephrosis with renal and ureteral calculous obstruction; Translations: [Calculus of ureter] Onset: 09-23-2023 09-23-2023 Episodic Other gastrointestinal disorders (6 sources) Slow transit constipation; Translations: [Slow transit constipation] Onset: 09-23-2023 09-23-2023 Episodic Spondylosis; intervertebral disc disorders; other back problems (14 sources) Acute back pain with sciatica; Translations: [Lumbago with sciatica, right side] Onset: 03-24-2023 Episodic Unclassified (1 source) Contact with and (suspected) exposure to covid-19 Z20.822 Onset: 05-09-2022 Resolved: 05-09-2022 Results Test Name Value Interpretation Reference Range Facility ALBUMIN, RANDOM URINE W/CREA TININEon 11-09-2024 ALBUMIN, URINE 0.6 mg/dL Normal See Note: [facility] Comment on above: Order Comment: FASTI NG:UNKNOWN LTC ONLY: NURSE COLLECTED - NO SPECIMEN PROVIDED. FASTING: UNKNOWN Result Comment: Refe rence Range: Reference Range Not established Performed By: #### [id number] #### [facility] [address], [address] [place] [address] Pattern Stamper: Martin Carl MD ALBUMIN/CREATININE RATIO, RANDOM URINE 3 mg/g creat Normal <30 [facility] Comment on above: Order Comment: FASTI NG:UNKNOWN LTC ONLY: NURSE COLLECTED - NO SPECIMEN PROVIDED. FASTING: UNKNOWN Result Comment: The ADA defines abnormalities in albumin excretion as follows: Albuminuria Category Result (mg/g creatinine) Normal to Mildly increased <30 Moderately increased 30-299 Severely increased > OR = 300 The ADA recommends that at least two of three specimens collected within a 3-6 month period be abnormal before considering a patient to be within a diagnostic category. Performed By: #### 6 517 #### [facility] [address], [address] [place], [place] [id number] Pattern Stamper: Martin Carl MD Creatinine (U) [Mass/Vol] 208 mg/dL Normal 20-320 [facility] Comment on above: Order Comment: FASTI NG:UNKNOWN LTC ONLY: NURSE COLLECTED - NO SPECIMEN PROVIDED. FASTING: UNKNOWN Performed By: #### 6 517 #### [facility] [address], [address] [place] [address] Pattern Stamper: Martin Carl MD Laboratory - Hematology and Cell countson 11-08-2024 HbA1c (Bld) [Mass fraction] 5.5 % [facility] AVA.ai No Panel Informationon 11-08 Interpretation and review of laboratory results Normal [facility] CT ABDOMEN AND PELVIS WO CON Ton 02-11-2024 CT ABDOMEN AND PELVIS WO CONT CT ABDOMEN AND PELVIS WO CONT CLINICAL INFORMATION: Rt flank pain; Calculus of kidney; History of renal stone. TECHNIQUE: CT Abdomen and Pelvis without intravenous contrast. All CT scans at this facility use dose modulation, iterative reconstruction, and/or weight based dosing when appropriate to reduce radiation dose to as low as reasonably achievable. COMPARISON: No relevant prior studies available. FINDINGS: CT abdomen: No hydronephrosis or urinary calculi. No free air or free fluid. No enlarged lymph nodes. No abdominal aortic aneurysm. Multiple hepatic cysts measuring up to [address] PELVIS: No dilated bowel loops or pericolonic fat stranding. No calcifications in the bladder. No evidence for dilated appendix. No enlarged lymph nodes. No osseous destructive lesions. IMPRESSION: * Negative exam Finalized by Westley Fitzpatrick MD on 02/11/2024 1:12 PM Normal [facility] RAD - Ultrasound Reporton RAD - Ultrasound Report [id number]#1. 00TIFF Normal [facility] Formson 08-25-2023 Forms [id number] .00TIFF Normal [facility] Physician Referralon 023 Physician Referral [id number]# 1.00TIFF Normal [facility] Screenson 08-25-2023 Screens [id number]# 1.00TIFF Normal [facility] Screens [id number]# 1.00TIFF Normal [facility] RAD - MISCon 08-21-2023 [facility] [id number]#1 .00TIFF Normal [facility] Ambulatory Visit Summaryon 1 10-20-2022 Ambulatory Visit Summary URMILA HEATON :1965 Visit Date:08/20/2023 Ambulatory Visit Instructions Your Diagnosis Ureteral stone with hydronephrosis Kidney stone Screening PSA (prostate specific antigen) Tests Performed Urnls Dip Stick Auto w/o Microscopy POC 65000 US Bladder -- Results Pending -- US Renal -- Results Pending -- XR Abdomen 1 View -- Results Pending -- Please visit your patient portal for your results or contact your primary care physician. Your Care Team Attending Physician - Isaura Vasquez MD Primary Care Physician - AMY DREW CNP Referring Physician - AMY DREW CNP This Is Your Medications List tamsulosin (tamsulosin 0.4 mg Cap) Contact prescribing physician if questions or concerns atorvastatin (atorvastatin 40 mg Tab) fexofenadine hyoscyamine (hyoscyamine 0.125 mg oral Tab) losartan (losartan 100 mg Tab) meloxicam (meloxicam 15 mg Tab) semaglutide (Ozempic (1 mg dose)) sildenafil (sildenafil 50 mg Tab) Procedures Performed Appendectomy, Hernia, Rotator cuff. Discharge Vitals Height 185 cm Height 73 in Weight 136.4 kg Weight 300.08 lb BMI 39.85 What to do next You Need to Schedule the Following Appointments Follow Up with Pedro WISE, Isaura Aviles, URL, URO When: Where: Medications What How Much When Instructions Changed tamsulosin (tamsulosin 0.4 mg Cap) 1 Capsules By Mouth Every day Pickup at [facility] #[id number] Unchanged atorvastatin (atorvastatin 40 mg Tab) Unknown, 0 Refill(s) Contact prescribing physician if questions or concerns Unchanged fexofenadine 0 Refill(s) Contact prescribing physician if questions or concerns Unchanged hyoscyamine (hyoscyamine 0.125 mg oral Tab) By Mouth Contact prescribing physician if questions or concerns Unchanged losartan (losartan 100 mg Tab) Unknown, 0 Refill(s) Contact prescribing physician if questions or concerns Unchanged meloxicam (meloxicam 15 mg Tab) Unknown, 0 Refill(s) Contact prescribing physician if questions or concerns Unchanged semaglutide (Ozempic (1 mg dose)) 0 Refill(s) Contact prescribing physician if questions or concerns Unchanged sildenafil (sildenafil 50 mg Tab) 8 EA, 0 Refill(s), take 1 tablet by mouth once daily if needed for ERECTILE DYSFUNCTION Contact prescribing physician if questions or concerns Pharmacy Information [facility] #[id number]: [address], [place] [id number] [phone] Test Results Urnls Dip Stick Auto w/o Microscopy POC 61349 (08/20/2023) Bilirubin Urine Dipstick - Negative Blood Urine Dipstick - Negative Glucose Urine Dipstick - Negative Ketones Urine Dipstick - Negative Leukocytes Urine Dipstick - Negative Nitrite Urine Dipstick - Negative Protein Urine Dipstick - Negative Specific [place] Urine Dipstick - 1.025 Urine Appearance Urine Dipstick - Clear Urine Color Urine Dipstick - Yellow Urobilinogen Urine Dipstick - Normal 0.2-1 EU/dl pH Urine Dipstick - 6 Allergies No Known Allergies Problems Ongoing - Any problem that you are currently receiving treatment for. Anxiety Arthritis Essential hypertension Kidney stone Major depressive disorder Screening PSA (prostate specific antigen) Type 2 diabetes mellitus Ureteral stone Ureteral stone with hydronephrosis Patient Survey You may receive a survey via text or e-mail asking about your office visit. Please share your experience with us by completing your survey. We appreciate your feedback and thank you for choosing us for your care. Education Materials Dietary Guidelines to Help Prevent Kidney Stones Kidney stones are deposits of minerals and salts that form inside your kidneys. Your risk of developing kidney stones may be greater depending on your diet, your lifestyle, the medicines you take, and whether you have certain medical conditions. Most people can lower their chances of developing kidney stones by following the instructions below. Your dietitian may give you more specific instructions depending on your overall health and the type of kidney stones you tend to develop. What are tips for following this plan? Reading food labels ? Choose foods with no salt added or low-salt labels. Limit your salt (sodium) intake to less than 1,500 mg a day. ? Choose foods with calcium for each meal and snack. Try to eat about 300 mg of calcium at each meal. Foods that contain 200?500 mg of calcium a serving include: ? 8 oz (237 mL) of milk, calcium-fortifiednon- dairy milk, and calcium-fortifiedfrui t juice. Calcium-fortified means that calcium has been added to these drinks. ? 8 oz (237 mL) of kefir, yogurt, and soy yogurt. ? 4 oz (114 g) of tofu. ? 1 oz (28 g) of cheese. ? 1 cup (150 g) of dried figs. ? 1 cup (91 g) of cooked broccoli. ? One 3 oz (85 g) can of sardines or mackerel. Most people need 1,000?1,500 mg of calcium a day. Talk to your dietitian about how much calcium is recommended for you. Shopping ? Bu (more content not included)... Normal [facility] Patient Educationon 08-20-20 Patient Education Nephrology Dietary Guidelines to Help Prevent Kidney Stones Kidney stones are deposits of minerals and salts that form inside your kidneys. Your risk of developing kidney stones may be greater depending on your diet, your lifestyle, the medicines you take, and whether you have certain medical conditions. Most people can lower their chances of developing kidney stones by following the instructions below. Your dietitian may give you more specific instructions depending on your overall health and the type of kidney stones you tend to develop. What are tips for following this plan? Reading food labels ? Choose foods with no salt added or low-salt labels. Limit your salt (sodium) intake to less than 1,500 mg a day. ? Choose foods with calcium for each meal and snack. Try to eat about 300 mg of calcium at each meal. Foods that contain 200?500 mg of calcium a serving include: ? 8 oz (237 mL) of milk, calcium-fortifiednon- dairy milk, and calcium-fortifiedfrui t juice. Calcium-fortified means that calcium has been added to these drinks. ? 8 oz (237 mL) of kefir, yogurt, and soy yogurt. ? 4 oz (114 g) of tofu. ? 1 oz (28 g) of cheese. ? 1 cup (150 g) of dried figs. ? 1 cup (91 g) of cooked broccoli. ? One 3 oz (85 g) can of sardines or mackerel. Most people need 1,000?1,500 mg of calcium a day. Talk to your dietitian about how much calcium is recommended for you. Shopping ? Buy plenty of fresh fruits and vegetables. Most people do not need to avoid fruits and vegetables, even if these foods contain nutrients that may contribute to kidney stones. ? When shopping for convenience foods, choose: ? Whole pieces of fruit. ? Pre-made salads with dressing on the side. ? Low-fat fruit and yogurt smoothies. ? Avoid buying frozen meals or prepared deli foods. These can be high in sodium. ? Look for foods with live cultures, such as yogurt and kefir. ? Choose high-fiber grains, such as whole-wheat breads, oat bran, and wheat cereals. Cooking ? Do not add salt to food when cooking. Place a salt shaker on the table and allow each person to add his or her own salt to taste. ? Use vegetable protein, such as beans, textured vegetable protein (TVP), or tofu, instead of meat in pasta, casseroles, and soups. Meal planning ? Eat less salt, if told by your dietitian. To do this: ? Avoid eating processed or pre-made food. ? Avoid eating fast food. ? Eat less animal protein, including cheese, meat, poultry, or fish, if told by your dietitian. To do this: ? Limit the number of times you have meat, poultry, fish, or cheese each week. Eat a diet free of meat at least 2 days a week. ? Eat only one serving each day of meat, poultry, fish, or seafood. ? When you prepare animal protein, cut pieces into small portion sizes. For most meat and fish, one serving is about the size of the palm of your hand. ? Eat at least five servings of fresh fruits and vegetables each day. To do this: ? Keep fruits and vegetables on hand for snacks. ? Eat one piece of fruit or a handful of berries with breakfast. ? Have a salad and fruit at lunch. ? Have two kinds of vegetables at dinner. ? Limit foods that are high in a substance called oxalate. These include: ? Spinach (cooked), rhubarb, beets, sweet potatoes, and Liberian chard. ? Peanuts. ? Potato chips, yoruba fries, and baked potatoes with skin on. ? Nuts and nut products. ? Chocolate. ? If you regularly take a diuretic medicine, make sure to eat at least 1 or 2 servings of fruits or vegetables that are high in potassium each day. These include: ? Avocado. ? Banana. ? [place], prune, carrot, or tomato juice. ? Baked potato. ? Cabbage. ? Beans and split peas. Lifestyle ? Drink enough fluid to keep your urine pale yellow. This is the most important thing you can do. Spread your fluid intake throughout the day. ? If you drink alcohol: ? Limit how much you use to: ? 0?1 drink a day for women who are not . ? 0?2 drinks a day for men. ? Be aware of how much alcohol is in your drink. In the [place] one drink equals one 12 oz bottle of beer (355 mL), one 5 oz glass of wine (148 mL), or one 1? oz glass of hard liquor (44 mL). ? Lose weight if told by your health care provider. Work with your dietitian to find an eating plan and weight loss strategies that work best for you. General information ? Talk to your health care provider and dietitian about taking daily supplements. You may be told the following depending on your health and the cause of your kidney stones: ? Not to take supplements with vitamin C. ? To take a calcium supplement. ? To take a daily probiotic supplement. ? To take other supplements such as magnesium, fish oil, or vitamin B6. ? Take [id number]-[id number] and prescription medicines only as told by your health care provider. These include supplements. What foods should I limit? Limit your in (more content not included)... Normal [facility] XR knee RT 4V*on 09-25-2022 XR knee RT 4V* [facility] [employer] Other XR knee RT 4V* [facility] [place] Main [facility] [employer] Other XR knee RT 4V* [address] [facility] [employer] Other XR knee RT 4V* [place] [address] No rt [employer] Other XR knee RT 4V* XRay Report [employer] Other XR knee RT 4V* Signed [employer] Other XR knee RT 4V* Patient: Urmila Heaton MR#: [id number] [employer] Other XR knee RT 4V* 88 [employer] Other XR knee RT 4V* : 1965 Acct:[id number] [employer] Other XR knee RT 4V* Age/Sex: 57 / M ADM Date: 09/25/22 [employer] Other XR knee RT 4V* Loc: XDUCLY [facility]: [facility] [employer] Other XR knee RT 4V* Attending Dr: Mary Jane LANGLEY [employer] Other XR knee RT 4V* Copies to: SHIVAM Byers [employer] Other XR knee RT 4V* Ordering Provider: SHIVAM Byers [employer] Other XR knee RT 4V* Date of Service: 09/25/22 [employer] Other XR knee RT 4V* XR/XR knee RT 4V*: RIGHT KNEE INJURY [employer] Other XR knee RT 4V* XR knee RT 4V* 09/25/2022 9:46 AM [employer] Other XR knee RT 4V* SIGNS AND SYMPTOMS: Fall with injury to right knee. Pain radiating diffusely throughout the right [employer] Other XR knee RT 4V* knee. [employer] Other XR knee RT 4V* PROTOCOL: Frontal, lateral, and oblique radiographs of the right knee [employer] Other XR knee RT 4V* COMPARISON: None [facility] [employer] Other XR knee RT 4V* FINDINGS: Isra eldridge [employer] Other XR knee RT 4V* There is mild narrowing of the medial weightbearing joint space with mild spurring of the medial [employer] Other XR knee RT 4V* femoral condyle and medial tibial plateau. There is narrowing of the patellofemoral joint space with [employer] Other XR knee RT 4V* a small joint effusion. There is enthesophyte formation at the poles of the patella. There is no [employer] Other XR knee RT 4V* evidence of fracture or dislocation. [employer] Other XR knee RT 4V* XR/XR knee RT 4V* [employer] Other XR knee RT 4V* IMPRESSION: Isra [employer] Other XR knee RT 4V* No acute bony injury. [employer] Other XR knee RT 4V* Degenerative changes are noted, as above. [employer] Other XR knee RT 4V* There is a small joint effusion. [employer] Other XR knee RT 4V* Impression dictated by: Nico Decker M.D.09/25/2022 10:07 AM [employer] Other XR knee RT 4V* Dictation Location: [place] [address] [employer] Other XR knee RT 4V* Transcribed By: JOSE 09/25/22 [facility] [employer] Other XR knee RT 4V* Dictated By: Nico Decker II, MD 09/25/22 1006 [employer] Other XR knee RT 4V* Signed By: [facility] [employer] [employer] Other XR knee RT 4V* 09/25/22 1007 [employer] Other XR knee RT 4V* [facility] Main Vivian [address] [place] [address] XRay Report Signed Patient: Urmila Heaton MR#: [id number] : 1965 Acct:[id number] Age/Sex: 57 / M ADM Date: 09/25/22 Loc: XDUCLY Room: Type: [facility] Attending Dr: Mary Jane LANGLEY Copies to: SHIVAM Byers Ordering Provider: SHIVAM Byers Date of Service: 09/25/22 XR/XR knee RT 4V*: RIGHT KNEE INJURY XR knee RT 4V* 09/25/2022 9:46 AM SIGNS AND SYMPTOMS: Fall with injury to right knee. Pain radiating diffusely throughout the right knee. PROTOCOL: Frontal, lateral, and oblique radiographs of the right knee COMPARISON: None FINDINGS: There is mild narrowing of the medial weightbearing joint space with mild spurring of the medial femoral condyle and medial tibial plateau. There is narrowing of the patellofemoral joint space with a small joint effusion. There is enthesophyte formation at the poles of the patella. There is no evidence of fracture or dislocation. XR/XR knee RT 4V* IMPRESSION: No acute bony injury. Degenerative changes are noted, as above. There is a small joint effusion. Impression dictated by: Nico Decker M.D.09/25/2022 10:07 AM Dictation Location: [place] [address] Transcribed By: [facility] 09/25/22 1007 Dictated By: Nico Decker II, MD 09/25/22 1006 Signed By: 09/25/22 1007 [facility] SARS-CoV-2 (COVID-19) RNA NA A+probe Ql (Resp)on 05-09-2022 SARS-CoV-2 (COVID-19) RNA SOUMYA+probe Ql (Unsp spec) Negative [employer] Other POINT OF CARE GLUCOSEon 04-12 Glucose [Mass/Vol] 130 mg/dL Critically high 74-106 T [facility] Comment on above: Performed By: #### P OCGLUC #### [facility] [address] [place] [address] Marycarmen Patt PROF CHEM 8 (BAS METB)on Anion gap [Moles/Vol] 13.1 mmol/L Normal [facility] Comment on above: Performed By: #### B MP #### [facility] [address] [place] [address] Marycarmen Patt Calcium [Mass/Vol] 9.7 mg/dL Normal 8.4-10.2 [facility] Comment on above: Performed By: #### B MP #### [facility] [address] [place] [address] Marycarmen Patt Chloride [Moles/Vol] 99 mmol/L Normal 98-107 [facility] Comment on above: Performed By: #### B MP #### [facility] [address] [place] [address] Marycarmen Patt CO2 [Moles/Vol] 29.0 mmol/L Normal 22.0-30.0 [facility] Comment on above: Performed By: #### B MP #### [facility] [address] [place] [address] Marycarmen Patt Creatinine [Mass/Vol] 1.08 mg/dL Normal 0.66-1.25 [facility] Comment on above: Performed By: #### B MP #### [facility] [address] [place], [place] [id number] Marycarmen Patt EGFR-AF FIJIAN >60 Normal >=60 [facility] Comment on above: Performed By: #### B MP #### [facility] [address] [place] [address] Marycarmen Patt EGFR-NON AF FIJIAN >60 Normal >=60 [facility] Comment on above: Performed By: #### B MP #### [facility] [address] [place], [place] [address] Marycarmen Patt Glucose [Mass/Vol] 131 mg/dL Critically high 74-106 T [facility] Comment on above: Performed By: #### B MP #### [facility] [address] [place], [place] [address] Marycarmen Patt Potassium [Moles/Vol] 3.1 mmol/L Critically low 3.4-5.0 [facility] Comment on above: Performed By: #### B MP #### [facility] [address] [place], [place] [address] Marycarmen Patt Sodium [Moles/Vol] 138 mmol/L Normal 137-145 [facility] Comment on above: Performed By: #### B MP #### [facility] [address] [place], [place] [address] Marycarmen Patt Urea nitrogen [Mass/Vol] 13.0 mg/dL Normal 9.0-20.0 [facility] Comment on above: Performed By: #### B MP #### [facility] [address] [place], [place] [address] Marycarmen Patt Urea nitrogen/Creatinine [Mass ratio] 12.0 mg/mg Normal [facility] Comment on above: Performed By: #### B MP #### [facility] [address] [place], [place] [address] Marycarmen Patt MRI SHOULDER RT WO CONon MRI SHOULDER RT WO CON Patient: URMILA HEATON Exam Date: 02/19/2019 : 1965 Gender:M Ordering : DR Lani GOLDSTEIN D.O. Admission #: [id number] Family : Order #: [id number] CLICK HERE TO VIEW EXAM RADIOLOGY REPORT PROCEDURE: MRI SHOULDER RIGHT WITHOUT CONTRAST COMPARISON: XR SHOULDER RT 2V OR >, 01/08/2019. INDICATIONS: Chronic pain of right shoulder joint TECHNIQUE: A variety of imaging planes and parameters were utilized for visualization of suspected pathology. Imaging was performed without contrast. FINDINGS: ROTATOR CUFF REGION CUFF TENDONS: Mild strain of the supraspinatus tendon. Prominent T2 signal along the undersurface of the infraspinatus tendon between its humeral attachment and the musculotendinous junction without focal full-thickness tear. CUFF MUSCLES: Normal appearing muscles. DELTOID: No significant atrophy or tear. LONG BICEPS TENDON: No abnormal signal, attrition, or tear. LABRUM/BICEPS ANCHOR SUPERIOR: No visible labral tear or biceps anchor pathology. ANTERIOR/INFERIOR: No visible tear or attrition. POSTERIOR: No posterior labrum abnormality. CAPSULE Normal. No visible capsular laxity or thickening. AC JOINT REGION AC JOINT: Mild osteoarthropathy with no significant narrowing of the underlying coracoacromial arch. AC LIGAMENTS: Normal acromioclavicular ligament. CC LIGAMENTS: Normal coracoclavicular ligaments. ACROMION: Normal horizontal configuration. SUBACROMIAL BURSA: Trace amount of fluid. HYALINE CARTILAGE: No visible cartilage narrowing or focal defect. OTHER BONES: Narrowing of the glenohumeral joint suggesting cartilage thinning. OTHER OBSERVATIONS: Negative. No other significant findings or glenohumeral effusion. CONCLUSION: 1. Suspect undersurface tear/partial tear of the infraspinatus tendon of the rotator cuff. 2. Mild strain of the supraspinatus tendon of the rotator cuff. 3. Narrowing of the glenohumeral joint suggesting cartilage thinning. No subchondral edema. Dictated by: Westley Berger M.D. on 02/19/2019 at 09:29 Approved by: Westley Berger M.D. on 02/19/2019 at 10:00 Normal [facility] XR SHOULDER RT 2V OR >on XR SHOULDER RT 2V OR > [address] [place] [address] Patient: URMILA HEATON Exam Date: 01/08/2019 : 1965 Gender:M Ordering : DR MARGARITA JERONIMO M.D. Admission #: [id number] Family : Order #: [id number] CLICK HERE TO VIEW EXAM RADIOLOGY REPORT PROCEDURE: RADIOGRAPH SHOULDER RIGHT MIN 2 VIEWS COMPARISON: None. INDICATIONS: Chronic pain of right shoulder with no injury FINDINGS: BONES: Small osteophyte along the undersurface of the acromion process and slight narrowing of the acromioclavicular joint space. Unremarkable humeral head and glenoid. No fracture, acute abnormality, or significant arthropathy. SOFT TISSUES: No visible soft tissue swelling or radiopaque foreign body. OTHER: Negative. CONCLUSION: 1. Mild degenerative changes of the acromioclavicular joint. Dictated by: Westley Berger M.D. on 01/08/2019 at 17:50 Approved by: Westley Berger M.D. on 01/08/2019 at 17:50 Normal [facility] Vital Signs Date Time Vital Sign Value Performing Clinician Facility 11-23-2024 09:04-0500 Body height 185.4 cm Rebekah Steiner SENIOR BIOINFORMATICS SCIENTIST Work Phone: [facility] 11-23-2024 09:04-0500 Body mass index (BMI) [Ratio] 35.57 kg/m2 Rebekah Steiner SENIOR BIOINFORMATICS SCIENTIST Work Phone: [facility] 11-23-2024 09:04-0500 Body temperature 98.2 [degF] Rebekah Steiner SENIOR BIOINFORMATICS SCIENTIST Work Phone: [facility] 11-23-2024 09:04-0500 Body weight 122.29 kg Rebekah Steiner SENIOR BIOINFORMATICS SCIENTIST Work Phone: [facility] 11-23-2024 09:04-0500 Diastolic blood pressure 76 mm[Hg] Rebekah Steiner SENIOR BIOINFORMATICS SCIENTIST Work Phone: [facility] 11-23-2024 09:04-0500 Heart rate 79 /min Rebekah Steiner SENIOR BIOINFORMATICS SCIENTIST Work Phone: [facility] 11-23-2024 09:04-0500 Respiratory rate 17 /min Rebekah Steiner SENIOR BIOINFORMATICS SCIENTIST Work Phone: [facility] 11-23-2024 09:04-0500 SaO2% (BldA) [Mass fraction] 98 % Rebekah Steiner SENIOR BIOINFORMATICS SCIENTIST Work Phone: [facility] 11-23-2024 09:04-0500 Systolic blood pressure 134 mm[Hg] Rebekah Steiner SENIOR BIOINFORMATICS SCIENTIST Work Phone: [facility] 11-08-2024 10:08-0500 Body height 185.4 cm Margarita Jeronimo MD Work Phone: [facility] 11-08-2024 10:08-0500 Body mass index (BMI) [Ratio] 35.49 kg/m2 Margarita Jeronimo MD Work Phone: [email or web address] 11-08-2024 10:08-0500 Body weight 122.02 kg Margarita Jeronimo MD Work Phone: [email or web address] 11-08-2024 10:08-0500 Diastolic blood pressure 88 mm[Hg] Margarita Jeronimo MD Work Phone: [facility] 11-08-2024 10:08-0500 Heart rate 67 /min Margarita Jeronimo MD Work Phone: [email or web address] 11-08-2024 10:08-0500 SaO2% (BldA) [Mass fraction] 97 % Margarita Jeronimo MD Work Phone: [email or web address] 11-08-2024 10:08-0500 Systolic blood pressure 130 mm[Hg] Margarita Jeronimo MD Work Phone: [email or web address] 03-28-2023 15:35-0400 Body height 185.42 cm Maddy Maria Other [employer] Other 03-28-2023 15:35-0400 Body mass index (BMI) [Ratio] 38.71 kg/m2 Maddy Maria Other [employer] Other 03-28-2023 15:35-0400 Body temperature 98.7 [degF] Maddy Maria Other [employer] Other 03-28-2023 15:35-0400 Body weight 133.09 kg Maddy Maria Other [employer] Other 03-28-2023 15:35-0400 Diastolic blood pressure 81 mm[Hg] Maddy Maria Other [employer] Other 03-28-2023 15:35-0400 Respiratory rate 18 /min Maddy Keeley Other [employer] Other 03-28-2023 15:35-0400 SaO2% (BldA) [Mass fraction] 98 % Maddy Maria Other [employer] Other 03-28-2023 15:35-0400 Systolic blood pressure 108 mm[Hg] Maddy Keeley Other [employer] Other 09-25-2022 10:45-0500 Body height 185.42 cm Mary Jane Jones Other [employer] Other 09-25-2022 10:45-0500 Body mass index (BMI) [Ratio] 43.53 kg/m2 Mary Jane Vegamond Other [employer] Other 09-25-2022 10:45-0500 Body temperature 98.3 [degF] Mary Jane Vegamond Other [employer] Other 09-25-2022 10:45-0500 Body weight 149.69 kg Mary Jane Vegamond Other [employer] Other 09-25-2022 10:45-0500 Diastolic blood pressure 88 mm[Hg] Mary Jane Karen Other [employer] Other 09-25-2022 10:45-0500 Respiratory rate 18 /min Mary Jane Vegamond Other [employer] Other 09-25-2022 10:45-0500 SaO2% (BldA) [Mass fraction] 97 % Mary Jane Vegamond Other [employer] Other 09-25-2022 10:45-0500 Systolic blood pressure 133 mm[Hg] Mary Jane Jones Other [employer] Other 05-09-2022 17:45-0400 Body height 185.42 cm Danitza Ibarra Other [employer] Other 05-09-2022 17:45-0400 Body mass index (BMI) [Ratio] 40.9 kg/m2 Danitza Ibarra Other [employer] Other 05-09-2022 17:45-0400 Body temperature 98.8 [degF] Danitza Ibarra Other [employer] Other 05-09-2022 17:45-0400 Body weight 140.62 kg Danitza Ibarra Other [employer] Other 05-09-2022 17:45-0400 Respiratory rate 18 /min Danitza Ibarra Other [employer] Other 05-09-2022 17:45-0400 SaO2% (BldA) [Mass fraction] 97 % Danitza Ibarra Other [employer] Other Encounters Encounter Date Encounter Type Care Provider Facility Start: 11-23-2024 End: 11-23-2024 Bamboo flowsheet Rebekah Steiner SENIOR BIOINFORMATICS SCIENTIST Work Phone: [facility] Start: 11-23-2024 End: 11-23-2024 BamMavrxo flowsheet Rebekah Steiner SENIOR BIOINFORMATICS SCIENTIST Work Phone: [facility] Start: 11-23-2024 End: 11-23-2024 Office outpatient visit 25 minutes Rebekah Steiner SENIOR BIOINFORMATICS SCIENTIST Work Phone: [facility] Comment on above: Acute non-recurrent pansinusitis (Primary Dx); Pure hypercholesterolemia (CMS/HCC) Start: 11-08-2024 End: 11-08-2024 Office outpatient visit 25 minutes Margarita Jeronimo MD Work Phone: [facility] Comment on above: Type 2 diabetes josé miguel itus without complication, 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 (CMS/HCC); Benign essential hypertension (CMS/HCC); Nocturia; Well adult exam; Screening for lipid disorders; Morbid (severe) obesity due to excess calories (CMS/HCC); Pure hypercholesterolemia, unspecified (CMS/[facility]); Body mass index (BMI) 37.0-37.9, adult Start: 11-08-2024 End: 11-08-2024 Patient encounter status Margarita Jeronimo MD Work Phone: [facility] Start: 11-08-2024 End: 11-08-2024 ambulatory MARGARITA JERONIMO Not Available Start: 08-09-2024 End: 08-09-2024 Telephone encounter Gege Leo [place] Work Phone: [facility] Comment on above: Med Refill Start: 05-04-2024 End: 05-04-2024 ambulatory LESLY Jose NATHANIEL Not Available Start: 03-23-2024 End: 03-23-2024 ambulatory MARGARITA Lian KANDACE Not Available Start: 02-11-2024 End: 02-12-2024 ambulatory AMY DREW [facility] Start: 02-05-2024 End: 02-05-2024 ambulatory AMY DREW Not Available Start: 08-20-2023 End: 08-21-2023 ambulatory Isaura Vasquez Facility:[facility] Start: 08-20-2023 End: 08-20-2023 Patient encounter procedure Isaura Vasquez [facility] Start: 05-27-2023 ambulatory Isaura Lukatherine Facility:[facility] Start: 03-28-2023 End: 03-28-2023 ambulatory Maddy Maria Other [employer] Other Start: 03-28-2023 Office outpatient vi sit 15 minutes Maddy Maria [facility] [place] Start: 03-24-2023 Patient encounter status Armand Bailey PROCUREMENT SPECIALIST Work Phone: [facility] Start: 09-25-2022 Office outpatient vi sit 15 minutes Mary Jane Jones [facility] [place] Start: 09-25-2022 End: 09-25-2022 ambulatory Mary Jane Karen Facility:[facility] Start: 09-25-2022 End: 09-25-2022 ambulatory SENIOR BIOINFORMATICS SCIENTIST-C Mary Jane Jones Work Phone: [facility] Work Phone: Start: 09-25-2022 End: 09-25-2022 Patient encounter procedure SENIOR BIOINFORMATICS SCIENTIST-C Mary Jane Jones Work Phone: [facility] [place] Start: 05-09-2022 End: 05-09-2022 ambulatory Danitza Ibarra Other [employer] Other Start: 05-09-2022 Office outpatient vi sit 15 minutes Danitza Ibarra [facility] [place] Start: 04-26-2019 End: 04-26-2019 Patient encounter procedure Lani Lambert BOVEY Facility:[facility] Start: 04-08-2019 Encounter for prepro cedural cardiovascular examination [facility] Start: 04-08-2019 Encounter for prepro cedural laboratory examination [facility] Start: 04-06-2019 End: 04-07-2019 Patient encounter procedure J A TRISTON Facility:[facility] Start: 02-19-2019 End: 02-20-2019 Patient encounter procedure J A BOVEY Facility:[facility] Start: 01-08-2019 End: 01-09-2019 Patient encounter procedure MARGAIRTA JERONIMO Facility:[facility] Start: 07-17-2018 Patient encounter procedure ZEESHAN PÉREZ Facility:[facility] Encounter for prepro cedural cardiovascular examination [facility] Procedures Date Procedure Procedure Detail Performing Clinician Start: 11-08-2024 Hemoglobin glycosyla rosaura a1c Margarita Jeronimo MD Work Phone: Start: 09-25-2022 X-ray of right knee CATARINO- C Mar yJane Jones Work Phone: Appendectomy Isaura Vasquez Herniated structure (morphologic abnormality) Isaura Vasquez Rotator cuff includi ng muscles and tendons (body structure) Isaura Vasquez Plan of Treatment Date Care Activity Detail Author Start: 11-08-2025 Urine screening for protein Diabetes: Urine Protein Screening [facility] Start: 05-09-2025 End: 05-09-2025 Patient encounter procedure 05/09/2025 9:00 AM EDT Office Visit [facility] [address] [place] [address] Margarita Jeronimo MD [address] [place] [address] [facility] Start: 04-30-2025 Screening for malign ant neoplasm of colon [facility] Start: 02-06-2025 Hemoglobin A1c measurement Diabetes: Hemoglobin A1C [facility] Start: 01-03-2025 Influenza vaccination Influenza Vacc ine (#1) [facility] Comment on above: Postponed from 06/13 (Patient Refused) Start: 11-23-2024 End: 11-23-2024 Patient encounter procedure 11/23/2024 9:00 AM EST Office Visit [facility] [address] [place] [address] Rebekah Steiner NP [address] [place] [address] Arrived [facility] Comment on above: Arrived Start: 11-08-2024 End: 11-08-2025 CBC W Auto Differential panel - Blood CBC and differential Lab Routine Type 2 diabetes mellitus without complication, 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 (CMS/HCC) Benign essential hypertension (CMS/HCC) Nocturia Well adult exam Expected: 11/08/2024 (Approximate), Expires: 11/08/2025 [facility] Comment on above: Expected: 11/08/2024 (Approximate), Expires: 11/08/2025 Start: 11-08-2024 End: 11-08-2025 Comprehensive metabolic 2000 panel - Serum or Plasma Comprehensive metabolic panel Lab Routine Type 2 diabetes mellitus without complication, 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 (CMS/HCC) Benign essential hypertension (CMS/HCC) Nocturia Well adult exam Expected: 11/08/2024 (Approximate), Expires: 11/08/2025 [facility] Comment on above: Expected: 11/08/2024 (Approximate), Expires: 11/08/2025 Start: 11-08-2024 End: 11-08-2025 Lipid 1996 panel - Serum or Plasma Lipid panel Lab Routine Well adult exam Screening for lipid disorders Expected: 11/08/2024 (Approximate), Expires: 11/08/2025 [facility] Comment on above: Expected: 11/08/2024 (Approximate), Expires: 11/08/2025 Start: 11-08-2024 End: 11-08-2025 Microalbumin/Creatinine panel in random Urine Microalbumin / creatinine urine ratio Lab Routine Type 2 diabetes mellitus without complication, unspecified whether mcfp insulin use (CMS/HCC) Expected: 11/08/2024 (Approximate), Expires: 11/08/2025 [facility] Work Phone: Comment on above: Expected: 11/08/2024 (Approximate), Expires: 11/08/2025 Start: 11-08-2024 End: 11-08-2025 Prostate specific Ag [Mass/volume] in Serum or Plasma PSA Lab Routine Nocturia Expected: 11/08/2024 (Approximate), Expires: 11/08/2025 [facility] Comment on above: Expected: 11/08/2024 (Approximate), Expires: 11/08/2025 Start: 09-28-2024 End: 09-28-2024 Patient encounter procedure 09/28/2024 8:30 AM EST Office Visit [facility] [address] [facility] [address] [place] [id number] Margarita Jeronimo MD [address] [facility] [address] [place] [address] [facility] Start: 09-26-2024 Urine screening for protein Diabetes: Urine Protein Screening [facility] Start: 06-13-2024 Influenza vaccination Influenza Vacc ine (#1) [facility] Start: 05-06-2024 Hemoglobin A1c measurement Diabetes: Hemoglobin A1C [facility] Start: 04-02-2024 Glaucoma screening Diabetes: R etinopathy Screening [facility] Start: 1965 Screening for malign ant neoplasm of colon [facility] Immunizations Immunization Date Immunization Notes Care Provider Fa cility 09-23-2023 influenza, injectabl e, quadrivalent, preservative free Gege Leo PROCUREMENT SPECIALIST Work Phone: [facility] 09-23-2023 influenza virus vacc ine, unspecified formulation Gege Leo PROCUREMENT SPECIALIST Work Phone: [facility] 09-30-2022 influenza, injectabl e, quadrivalent, preservative free Gege Leo PROCUREMENT SPECIALIST Work Phone: [facility] 09-03-2021 influenza, injectabl e, quadrivalent, preservative free Gege Leo PROCUREMENT SPECIALIST Work Phone: [facility] 09-03-2021 Moderna SARS-CoV-2 Vaccination Gege Leo PROCUREMENT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 shopping for convenience foods, choose: ?Whole pieces of fruit. ?Pre-made salads with dressing on the side. ?Low-fat fruit and yogurt smoothies. Avoid buying frozen meals or prepared deli foods. These can be high in sodium. Look for foods with live cultures, such as yogurt and kefir. Choose high-fiber grains, such as whole-wheat breads, oat bran, and wheat cereals. Cooking Do not add salt to food when cooking. Place a salt shaker on the table and allow each person to add his or her own salt to taste. Use vegetable protein, such as beans, textured vegetable protein (TVP), or tofu, instead of meat in pasta, casseroles, and soups. Meal planning Eat less salt, if told by your dietitian. To do this: ?Avoid eating processed or pre-made food. ?Avoid eating fast food. Eat less animal protein, including cheese, meat, poultry, or fish, if told by your dietitian. To do this: ?Limit the number of times you have meat, poultry, fish, or cheese each week. Eat a diet free of meat at least 2 days a week. ?Eat only one serving each day of meat, poultry, fish, or seafood. ?When you prepare animal protein, cut pieces into small portion sizes. For most meat and fish, one serving is about the size of the palm of your hand. Eat at least five servings of fresh fruits and vegetables each day. To do this: ?Keep fruits and vegetables on hand for snacks. ?Eat one piece of fruit or a handful of berries with breakfast. ?Have a salad and fruit at lunch. ?Have two kinds of vegetables at dinner. Limit foods that are high in a substance called oxalate. These include: ?Spinach (cooked), rhubarb, beets, sweet potatoes, and Liberian chard. ?Peanuts. ?Potato chips, yoruba fries, and baked potatoes with skin on. ?Nuts and nut products. ?Chocolate. If you regularly take a diuretic medicine, make sure to eat at least 1 or 2 servings of fruits or vegetables that are high in potassium each day. These include: ?Avocado. ?Banana. ?[place], prune, carrot, or tomato juice. ?Baked potato. ?Cabbage. ?Beans and split peas. Lifestyle Drink enough fluid to keep your urine pale yellow. This is the most important thing you can do. Spread your fluid intake throughout the day. If you drink alcohol: ?Limit how much you use to: ?0 1 drink a day for women who are not . ?0 2 drinks a day for men. ?Be aware of how much alcohol is in your drink. In the [place] one drink equals one 12 oz bottle of beer (355 mL), one 5 oz glass of wine (148 mL), or one 1 oz glass of hard liquor (44 mL). Lose weight if told by your health care provider. Work with your dietitian to find an eating plan and weight loss strategies that work best for you. General information Talk to your health care provider and dietitian about taking daily supplements. You may be told the following depending on your health and the cause of your kidney stones: ?Not to take supplements with vitamin C. ?To take a calcium supplement. ?To take a daily probiotic supplement. ?To take other supplements such as magnesium, fish oil, or vitamin B6. Take fgrs-qkv-mekqnkz and prescription medicines only as told by your health care provider. These include supplements. What foods should I limit? Limit your intake of the following foods, or eat them as told by your dietitian. Vegetables Spinach. Rhubarb. Beets. Canned vegetables. Pickles. Olives. Baked potatoes with skin. Grains Wheat bran. Baked goods. Salted crackers. Cereals high in sugar. Meats and other proteins Nuts. Nut butters. Large portions of meat, poultry, or fish. Salted, precooked, or cured meats, such as sausages, meat loaves, and hot dogs. Dairy Cheese. Beverages Regular soft drinks. Regular vegetable juice. Seasonings and condiments Seasoning blends with salt. Salad dressings. Soy sauce. Ketchup. Barbecue sauce. Other foods Canned soups. Canned pasta sauce. Casseroles. Pizza. Lasagna. Frozen meals. Potato chips. Ghanaian fries. The items listed above may not be a complete list of foods and beverages you should limit. Contact a dietitian for more information. What foods should I avoid? Talk to your dietitian about specific foods you should avoid based on the type of kidney stones you have and your overall health. Fruits Grapefruit. The item listed above may not be a complete list of foods and beverages you should avoid. Contact a dietitian for more information. Summary Kidney stones are deposits of minerals and salts that form inside your kidneys. You can lower your risk of kidney stones by making changes to your diet. The most important thing you can do is drink enough fluid. Drink enough fluid to keep your urine pale yellow. Talk to your dietitian about how much calcium you should have each day, and eat less salt and animal protein as told by your dietitian. This information is not intended to replace advice given to you by your health care provider. Make sure you discuss any questions you have with your health care provider. Document Revised: 06/10/2022 Document Reviewed: 06/10/2022 [employer] Patient Education 2022 [email or web address]. Follow Up Care 05/27/2023 13:49:47 With:Pedro WISE, [place] Webber, [facility] Address: When: Unknown [facility] 09-25-2022 Evaluation note Encounter Date Diagnosis Assessment Notes Sep, Acute pain of right knee (ICD-10 - M25.561) Sep, Effusion, right knee (ICD-10 - M25.461) Knee effusion home care material was printed Wear the Aniket wrap for comfort and compression. Take Tylenol or Motrin as needed for pain and swelling. Ice and elevate your knee is much as possible. Use a cane or crutches as needed for walking for the next 2 to 3 days. Follow-up with your family physician if no improvement in 5 to 7 days. [employer] Other 07-28-2022 Evaluation note* Encounter Date Diagnosis Assessment Notes Treatment Notes Treatment Clinical Notes Apr, Contact with and (suspected) exposure to covid-19 (ICD-10 - Z20.822) Apr, Viral gastroenteritis (ICD-10 - A08.4) Advised patient that COVID PCR test was negative. Discussed diagnosis with patient. No apparent signs of significant dehydration. Oral hydration discussed, diet discussed, advance as tolerated. Caution with use of OTC anti-diarrheal medications. Immediate eval in ER for blood in stool or vomit, abdominal pain, fever, neck pain/stiffness, continued inability to keep fluids down despite using ondansetron, dehydration (decreased urine output, sunken in eyes, dry mucus membranes), or any other new or concerning symptoms. Follow up with PCP if no improvement in 24 hours. Patient verbalizes understanding and is agreeable to treatment plan Apr, Other Additional time spent conducting pre-visit phone call, screening for symptoms, instructions on social distancing, application and removal of PPE, and cleaning of examination room, equipment and supplies was performed. Patient education given for testing methodology and results. Patient care instructions given in writing by [facility] At Home document. [employer] Other Evaluation + Plan note No data available for this section [facility] evaluation noteNo assessment information available [facility] Work Phone: [facility] Other Evaluation note* Diagnosis Diabetic autonomic neuropathy associated with type 2 diabetes mellitus (CMS/HCC)- Primary Type II or unspecified type diabetes mellitus with neurological manifestations, not stated as uncontrolled Type 2 diabetes mellitus without complication, with long-term current use of insulin (CMS/HCC) Flu vaccine need Essential hypertension (CMS/HCC) Unspecified essential hypertension Obstructive sleep apnea Obstructive sleep apnea (adult) (pediatric) Primary osteoarthritis of both knees Slow transit constipation Diabetic autonomic neuropathy associated with type 2 diabetes mellitus (CMS/HCC)- Primary Type II or unspecified type diabetes mellitus with neurological manifestations, not stated as uncontrolled Primary osteoarthritis of both knees Morbid (severe) obesity due to excess calories (E66.01) Other chronic pain documented in this encounter [facility]* Diagnosis Diabetic autonomic neuropathy associated with type 2 diabetes mellitus (CMS/HCC)- Primary Type II or unspecified type diabetes mellitus with neurological manifestations, not stated as uncontrolled Type 2 diabetes mellitus without complication, with long-term current use of insulin (CMS/HCC) Flu vaccine need Essential hypertension (CMS/HCC) Unspecified essential hypertension Obstructive sleep apnea Obstructive sleep apnea (adult) (pediatric) Primary osteoarthritis of both knees Slow transit constipation Diabetic autonomic neuropathy associated with type 2 diabetes mellitus (CMS/HCC)- Primary Type II or unspecified type diabetes mellitus with neurological manifestations, not stated as uncontrolled Primary osteoarthritis of both knees Morbid (severe) obesity due to excess calories (E66.01) Type 2 diabetes mellitus without complication, unspecified whether mcfp insulin use (CMS/HCC) Benign essential hypertension (CMS/HCC) Essential hypertension, benign Nocturia Well adult exam Routine general medical examination at a health care facility Screening for lipid disorders Morbid (severe) obesity due to excess calories (CMS/HCC) Pure hypercholesterolemia, unspecified (CMS/HCC) Body mass index (BMI) 37.0-37.9, adult documented in this encounter [facility] HealthcareEvaluation [facility]* Diagnosis Diabetic autonomic neuropathy associated with type 2 diabetes mellitus (CMS/HCC)- Primary Type II or unspecified type diabetes mellitus with neurological manifestations, not stated as uncontrolled Type 2 diabetes mellitus without complication, with long-term current use of insulin (CMS/HCC) Flu vaccine need Essential hypertension (CMS/HCC) Unspecified essential hypertension Obstructive sleep apnea Obstructive sleep apnea (adult) (pediatric) Primary osteoarthritis of both knees Slow transit constipation Diabetic autonomic neuropathy associated with type 2 diabetes mellitus (CMS/HCC)- Primary Type II or unspecified type diabetes mellitus with neurological manifestations, not stated as uncontrolled Primary osteoarthritis of both knees Morbid (severe) obesity due to excess calories (E66.01) Type 2 diabetes mellitus without complication, unspecified whether mcfp insulin use (CMS/HCC) Benign essential hypertension (CMS/HCC) Essential hypertension, benign Nocturia Well adult exam Routine general medical examination at a health care facility Screening for lipid disorders Morbid (severe) obesity due to excess calories (CMS/HCC) Pure hypercholesterolemia, unspecified (CMS/HCC) Body mass index (BMI) 37.0-37.9, adult Acute non-recurrent pansinusitis- Primary Pure hypercholesterolemia (CMS/HCC) Pure hypercholesterolemia documented in this encounter [facility] HealthcareHistory general Narrative - Reported* Type Description Date Medical History diabetes [employer] Other History general Narrative - Reported* Type Description Date Medical History diabetes Medical History Hypertension [employer] Other History general Narrative - [facility] Other Progress note No data available for this section [facility] Summary Purpose Family History No Family History Records FoundNo Family History Records Found No data available for this section No Family History Records FoundNo Family History Records FoundNo Family History Records FoundNo Family History Records Found Advance Directives No Advanced Directives Records FoundNo Advanced Directives Records FoundNo Advanced Directives Records FoundNo Advanced Directives Records FoundNo Advanced Directives Records FoundNo Advanced Directives Records Found Additional Source Comments (unrecognized sect ion and content) No Status Records FoundNo Status Records FoundNo Status Records FoundNo Status Records FoundNo Status Records FoundNo Status Records Found INFORMATION SOURCE (unrecogn ized section and content) DATE CREATED AUTHOR 06/13/2019 [facility] DATE CREATED AUTHOR AUTHOR'S ORGANIZ ATION 10/08/2022 [facility] DATE CREATED AUTHOR AUTHOR'S ORGANIZ ATION 08/28/2023 [facility] DATE CREATED AUTHOR AUTHOR'S ORGANIZ ATION 02/13/2024 [facility] DATE CREATED AUTHOR AUTHOR'S ORGANIZ ATION 11/08/2024 [facility] EPIC DATE CREATED AUTHOR AUTHOR'S ORGANIZ ATION 11/11/2024 [facility] REASON FOR VISIT (unrecogniz ed section and content) Reason Onset Date Comments Med Refill 08/09/2024 Reason Comments Diabetes Last A1c was 5.6NEED S ALL LABS/ MICRO Care Teams (unrecognized sec tion and content) Team Status: Inactive Member Role Status Dates Mary Jane Jones , SENIOR BIOINFORMATICS SCIENTIST-C Attending Provider Active Pulmonary Specialist Relationship Specialty Start Date End Date Margarita Jeronimo MD [address] [facility] [address] [place] [address] PCP - General Family Medicine 03/18/23 Margarita Jeronimo MD [address] [facility] [address] [place] [address] PCP - [place] [facility] 05/13/24 Pulmonary Specialist Relationship Specialty Start Date End Date Margarita Jeronimo MD [address] [facility] [address] [place] [address] PCP - General Family Medicine 03/18/23 Margarita Jeronimo MD [address] [facility] [address] [place] [address] PCP [facility] 05/13/24 Pulmonary Specialist Relationship Specialty Start Date End Date Margarita Jeronimo MD [address] [facility] [address] [place] [address] PCP - [facility] Medicine 03/18/23 Pulmonary Specialist Relationship Specialty Start Date End Date Margarita Jeronimo MD [address] [facility] [address] [place] [address] PCP - General [facility] Medicine 03/18/23 Goals (unrecognized section and content) Goals may be documented in a n alternate section FOR RECORDS PERTAINING TO PATIENTS WHO ARE OR HAVE BEEN ENROLLED IN A CHEMICAL DEPENDENCY/SUBSTANCEABUSE PROGRAM, SOME INFORMATION MAY BE OMITTED. This clinical summary was aggregated from multiple sources. Caution should be exercised in using it in the provision of clinical care. This summary normalizes information from multiple sources, and as a consequence, information in this document may materially change the coding, format and clinical context of patient data. In addition, data may be omitted in some cases. CLINICAL DECISIONS SHOULD BE BASED ON THE PRIMARY CLINICAL RECORDS. [facility]. provides no warranty or guarantee of the accuracy or completeness of information in this document.
[2024-11-24 10:35] LABS: Basophils Absolute Auto 0.1 10^3/uL (0.0-0.1); Basophils Percent Auto 1.9 % (0.2-2.0); Eosinophils Absolute Auto 0.8 10^3/uL (0.0-0.7); Eosinophils Percent Auto 14.3 % (0.9-7.0); Hematocrit 40.9 % (42.0-54.0); Hemoglobin 14.1 g/dL (14.0-18.0); Immature Granulocytes Abs Auto 0.01 10^3/uL (0.00-0.03); Immature Granulocytes Pct Auto 0.2 % (0.0-0.5); Lymphocytes Absolute Auto 1.9 10^3/uL (1.2-3.8); Lymphocytes Percent Auto 32.3 % (20.5-60.0); Mean Corpuscular HGB Conc 34.5 g/dL (29.9-35.2); Mean Corpuscular Hemoglobin 31.7 pg (25.9-34.0); Mean Corpuscular Volume 91.9 fL (80.0-94.0); Mean Platelet Volume 9.6 fL (9.5-13.5); Monocytes Absolute Auto 0.5 10^3/uL (0.3-0.8); Monocytes Percent Auto 9.2 % (1.7-12.0); Neutrophils Absolute Auto 2.4 10^3/uL (1.4-6.5); Neutrophils Percent Auto 42.1 % (43.0-75.0); Platelet Count 230 10^3/uL (150-450); Red Blood Count 4.45 10^6/uL (4.70-6.10); Red Cell Distribution Width 12.8 % (11.0-15.0); White Blood Count 5.8 10^3/uL (4.0-11.0)
[2024-11-24 10:53] LABS: Alanine Aminotransferase 30 U/L (16-63); Albumin Level 3.6 g/dL (3.4-5.0); Alkaline Phosphatase 78 U/L (46-116); Anion Gap 12.5; Aspartate Amino Transferase 22 U/L (15-37); BUN Creatinine Ratio 18.3; Bilirubin Total 0.7 mg/dL (0.2-1.0); Calcium 8.7 mg/dL (8.5-10.1); Carbon Dioxide 27.4 mmol/L (21.0-32.0); Chloride 105 mmol/L (98-107); Chol HDL Ratio 2.6; Cholesterol 132 mg/dL (<=200); Estimated GFR (African America >60 (>=60 mL/min/1.73m^2); Estimated GFR (Non-African Ame >60 (>=60 mL/min/1.73m^2); Globulin 3.7 g/dL; Glucose 89 mg/dL (74-106); HDL Cholesterol 51 mg/dL (40-60); LDL Cholesterol Calculated 67.6 mg/dL; Potassium 3.9 mmol/L (3.5-5.1); Sodium 141 mmol/L (136-145); Total Protein 7.3 g/dL (6.4-8.2); Triglycerides 67 mg/dL (<=150); VLDL CHOLESTEROL 13.4 mg/dL
[2024-11-24 10:56] LABS: Creatinine Urine Random 185.19 mg/dL (20.00-300.00); Microalbumin Urine Random <1.3 mg/dL (<=30.0)
[2024-11-24 11:25] LABS: Prostate Specific Antigen Scrn 1.12 ng/mL (<=4.00)
== END 2024-11-24 10:08 | disposition home or self-care (01) ==
PROVIDERS: PCP Family Medicine; Visit Provider Family Medicine
DX: Z00.00 Encounter for general adult medical examination without abnormal findings (principal); E11.9 Type 2 diabetes mellitus without complications; I10 Essential (primary) hypertension; R35.1 Nocturia; Z13.220 Encounter for screening for lipoid disorders
CPT/HCPCS: 36415; 80053; 80061; 82043; 82570; 85025; G0103